=== PATIENT | female | born 1955 | race Caucasian/White ===

== ENCOUNTER → 2017-09-01 17:25 | Outpatient (CLI) | payer MEDICAID, SELFPAY ==
--- NOTE | 2017-09-01 17:30 | RAD_ITS ---
STUDY: X-RAY - ABDOMEN/PELVIS REASON FOR EXAM: Female, 62 years old. Diarrhea TECHNIQUE: AP supine and upright views of the abdomen and pelvis. COMPARISON: None. FINDINGS: Normal visualized lung bases. There is a moderate amount of colonic fecal material. There is no demonstrated free abdominal air. The visualized liver, spleen and kidneys are grossly normal in size and morphology. Normal soft tissue structures. There are diffuse degenerative changes of the visualized lumbar spine. RAD/Abd Inc Decub and/or Erect IMPRESSION: Moderate fecal retention throughout the colon Electronically Signed: Shamar Chavarria DO at 17:52 EST Tel , Service support ,
[2017-09-01 18:09] LABS: Absolute Lymphocyte Count 1.23 X10^3/ul (0.83-4.51); Basophil# 0.08 X10^3/uL; Basophil% 1.5 % (0-1); Eosinophil# 0.43 X10^3/uL; Eosinophils% 7.9 % (0-5); Hematocrit 37.9 % (37-47); Hemoglobin 11.9 g/dl (12.0-15.0); Lymphocyte # 1.23 X10^3/ul (4.0); Lymphocyte % 22.6 % (19-41); Mean Corp Hgb Conc 31.4 g/gl (32-36); Mean Corpuscular Hgb 28.6 pg (27.0-32.0); Mean Corpuscular Volume 91.1 fL (81-99); Monocyte% 12.8 % (0-10); Platelet Count 205 K/mm3 (150-450); RBC Distribution Width SD 46.1 fl (35.1-43.9); Red Blood Count 4.16 M/mm3 (4.2-5.4); White Blood Count 5.5 K/mm3 (4.4-11.0)
[2017-09-01 18:10] LABS: POSITIVE COUNT NO; POSITIVE DIFFERENTIAL NO; POSITIVE MORPHOLOGY NO
[2017-09-01 18:47] LABS: ALB/GLOB Ratio 0.9 RATIO (0.9-2.4); AST(SGOT) 34 U/L (15-37); Alanine Aminotransfer ALT/SGPT 42 U/L (13-56); Albumin, Serum 3.6 g/dL (3.2-5.0); Alkaline Phosphatase 84 U/L (45-117); Anion Gap 8 (5-15); BUN 13 mg/dL (7-18); BUN/Creat Ratio 12.6 RATIO (10-20); Calcium,Total 8.8 mg/dL (8.5-10.1); Chloride 98 mmol/L (98-107); Creatinine, Serum 1.03 mg/dL (0.55-1.02); EST Glomerular Filtration Rate 58 mL/min (>60); Est Glom Filt Rate - Afr Amer 70 mL/min (>60); Globulin 3.8 g/dL (2.2-4.2); Glucose 92 mg/dL (70-110); Potassium 4.1 mmol/L (3.5-5.1); Protein, Total 7.4 g/dL (6.4-8.2); Sodium Level 132 mmol/L (136-145)
== END ==
PROVIDERS: Family Provider Family Medicine Geriatric Medicine; PCP Family Medicine Geriatric Medicine; Visit Provider Family Medicine Geriatric Medicine
DX: N39.0 Urinary tract infection, site not specified (principal); K59.00 Constipation, unspecified; F05 Delirium due to known physiological condition
CPT/HCPCS: 74019; 80053; 85025; 87086

== ENCOUNTER → 2017-09-23 14:59 | Outpatient (CLI) | payer MEDICAID, SELFPAY ==
--- NOTE | 2017-09-24 09:35 | RAD_ITS ---
STUDY: X-RAY - ABDOMEN/PELVIS REASON FOR EXAM: Female, 62 years old. Diarrhea TECHNIQUE: AP supine and upright views of the abdomen and pelvis. COMPARISON: None. FINDINGS: Normal visualized lung bases. There is an unremarkable bowel gas pattern. There is no demonstrated free abdominal air. The visualized liver, spleen and kidneys are grossly normal in size and morphology. Normal soft tissue structures. Prominent degenerative changes of the left hip. RAD/Abd Inc Decub and/or Erect IMPRESSION: No definite acute abnormality. Electronically Signed: Bennett Hobson MD at 10:04 EST , Service support ,
== END ==
PROVIDERS: Family Provider Family Medicine Geriatric Medicine; PCP Family Medicine Geriatric Medicine; Visit Provider Family Medicine Geriatric Medicine
DX: R19.7 Diarrhea, unspecified (principal)

== ENCOUNTER → 2017-09-23 15:01 | Outpatient (CLI) | payer MEDICAID, SELFPAY | PROVIDERS: Family Provider Family Medicine Geriatric Medicine; PCP Family Medicine Geriatric Medicine; Visit Provider Family Medicine Geriatric Medicine | DX: N39.0 Urinary tract infection, site not specified (principal) | CPT/HCPCS: 87086; 87088 ==

== ENCOUNTER → 2018-01-08 05:45 | Outpatient (REF) | payer MEDICAID, SELFPAY ==
[2018-01-13 00:19] LABS: Hematocrit 39.2 % (37-47); Hemoglobin 12.4 g/dl (12.0-15.0); Mean Corp Hgb Conc 31.6 g/gl (32-36); Mean Corpuscular Hgb 29.6 pg (27.0-32.0); Mean Corpuscular Volume 93.6 fL (81-99); Platelet Count 318 K/mm3 (150-450); RBC Distribution Width CV 12.8 % (11.6-14.6); Red Blood Count 4.19 M/mm3 (4.2-5.4); White Blood Count 6.1 K/mm3 (4.4-11.0)
[2018-01-13 00:20] LABS: ALB/GLOB Ratio 0.9 RATIO (0.9-2.4); AST(SGOT) 15 U/L (15-37); Alanine Aminotransfer ALT/SGPT 28 U/L (13-56); Albumin, Serum 3.4 g/dL (3.2-5.0); Alkaline Phosphatase 66 U/L (45-117); BUN 10 mg/dL (7-18); BUN/Creat Ratio 13.2 RATIO (10-20); Creatinine, Serum 0.76 mg/dL (0.55-1.02); EST Glomerular Filtration Rate 83 mL/min (>60); Est Glom Filt Rate - Afr Amer 101 mL/min (>60); Globulin 3.6 g/dL (2.2-4.2); Glucose 75 mg/dL (74-106); Scan Indicated on CBC? Y/N NO; Sodium Level 140 mmol/L (136-145)
[2018-01-13 00:21] LABS: Anion Gap 7 (5-15); Chloride 104 mmol/L (98-107); Potassium 4.1 mmol/L (3.5-5.1)
== END ==
LOC: OLS.WCC 05:45
PROVIDERS: Visit Provider Family Medicine
DX: E87.1 Hypo-osmolality and hyponatremia (principal)
CPT/HCPCS: 36415; 80053; 82306; 85027

== ENCOUNTER → 2018-01-23 07:29 | Outpatient (REF) | payer MEDICAID, SELFPAY ==
[2018-01-23 08:18] LABS: Color, Urine Yellow (Yellow); Glucose, Dipstick Normal (Normal); Ketone-Dipstick Negative (Negative); Leukocyte Esterase-Dipstick 500 /ul (Negative); Nitrite-Dipstick Negative (Negative); Occult Blood-Urine 10 /ul (Negative); Protein-Dipstick Negative (Negative); Urine Bilirubin Dipstick Negative (Negative); Urine Clarity Sl. Cloudy (Clear); Urine Urobilinogen Normal (Normal); Urine pH 6.5 (5.0 - 8.0)
== END ==
LOC: OLS.WCC 07:29
PROVIDERS: Visit Provider Family Medicine
DX: N39.0 Urinary tract infection, site not specified (principal)
CPT/HCPCS: 81002; 87086; 87088; 87186

== ENCOUNTER → 2018-03-11 22:15 | Outpatient (REF) | payer MEDICAID, SELFPAY | LOC: OLS.WCC 22:15 | PROVIDERS: Visit Provider Family Medicine | DX: N39.0 Urinary tract infection, site not specified (principal) | CPT/HCPCS: 87077; 87086; 87088; 87186 ==

== ENCOUNTER → 2018-07-09 05:00 | Outpatient (REF) | payer MEDICAID, SELFPAY ==
[2018-07-09 08:59] LABS: Hematocrit 38.7 % (37-47); Hemoglobin 12.5 g/dl (12.0-15.0); Mean Corp Hgb Conc 32.3 g/gl (32-36); Mean Corpuscular Hgb 29.7 pg (27.0-32.0); Mean Corpuscular Volume 91.9 fL (81-99); Mean Platelet Vol. 10.5 fl (6.2-12.0); Platelet Count 292 K/mm3 (150-450); RBC Distribution Width CV 13.6 % (11.6-14.6); Red Blood Count 4.21 M/mm3 (4.2-5.4); White Blood Count 5.2 K/mm3 (4.4-11.0)
[2018-07-09 09:03] LABS: Scan Indicated on CBC? Y/N NO
[2018-07-09 09:09] LABS: AST(SGOT) 20 U/L (15-37); Alanine Aminotransfer ALT/SGPT 38 U/L (13-56); Albumin, Serum 3.5 g/dL (3.2-5.0); Alkaline Phosphatase 76 U/L (45-117); Anion Gap 8 (5-15); BUN 13 mg/dL (7-18); BUN/Creat Ratio 15.5 RATIO (10-20); Calcium,Total 9.4 mg/dL (8.5-10.1); Chloride 102 mmol/L (98-107); Creatinine, Serum 0.84 mg/dL (0.55-1.02); EST Glomerular Filtration Rate 73 mL/min (>60); Est Glom Filt Rate - Afr Amer 89 mL/min (>60); Globulin 3.6 g/dL (2.2-4.2); Glucose 86 mg/dL (74-106); Potassium 4.2 mmol/L (3.5-5.1); Protein, Total 7.1 g/dL (6.4-8.2); Sodium Level 138 mmol/L (136-145)
[2018-07-09 09:12] LABS: Vitamin D,25 Hydroxy 47.5 ng/mL (29.95-100.01)
== END ==
LOC: OLS.WCC 05:00
PROVIDERS: Visit Provider Family Medicine
DX: E55.9 Vitamin D deficiency, unspecified (principal); Z79.899 Other long term (current) drug therapy
CPT/HCPCS: 36415; 80053; 82306; 85027

== ENCOUNTER → 2018-08-07 14:30 | Outpatient (REF) | payer MEDICAID, SELFPAY ==
[2018-08-08 09:46] LABS: Color, Urine Yellow (Yellow); Glucose, Dipstick Normal (Normal); Ketone-Dipstick Negative (Negative); Leukocyte Esterase-Dipstick 500 /ul (Negative); Nitrite-Dipstick Negative (Negative); Occult Blood-Urine Negative /ul (Negative); Protein-Dipstick Negative (Negative); Urine Bilirubin Dipstick Negative (Negative); Urine Clarity Clear (Clear); Urine Urobilinogen Normal (Normal)
== END ==
LOC: OLS.WCC 14:30
PROVIDERS: Visit Provider Family Medicine
DX: N39.0 Urinary tract infection, site not specified (principal)
CPT/HCPCS: 81002; 87086; 87088

== ENCOUNTER → 2019-01-07 | Outpatient (REF) | payer MEDICAID, SELFPAY ==
[2019-01-07 07:56] LABS: Hematocrit 42.2 % (37-47); Hemoglobin 13.2 g/dl (12.0-15.0); Mean Corp Hgb Conc 31.3 g/gl (32-36); Mean Corpuscular Hgb 28.1 pg (27.0-32.0); Mean Platelet Vol. 11.4 fl (6.2-12.0); Platelet Count 261 K/mm3 (150-450); RBC Distribution Width CV 14.1 % (11.6-14.6); RBC Distribution Width SD 46.2 fl (35.1-43.9); Red Blood Count 4.69 M/mm3 (4.2-5.4); White Blood Count 5.4 K/mm3 (4.4-11.0)
[2019-01-07 08:01] LABS: Scan Indicated on CBC? Y/N NO
[2019-01-07 08:24] LABS: ALB/GLOB Ratio 0.8 RATIO (0.9-2.4); AST(SGOT) 41 U/L (15-37); Alanine Aminotransfer ALT/SGPT 77 U/L (13-56); Albumin, Serum 3.1 g/dL (3.2-5.0); Alkaline Phosphatase 80 U/L (45-117); Anion Gap 5 (5-15); BUN 18 mg/dL (7-18); BUN/Creat Ratio 23.3 RATIO (10-20); Calcium,Total 9.3 mg/dL (8.5-10.1); Chloride 107 mmol/L (98-107); Creatinine, Serum 0.77 mg/dL (0.55-1.02); EST Glomerular Filtration Rate 80 mL/min (>60); Est Glom Filt Rate - Afr Amer 97 mL/min (>60); Globulin 3.8 g/dL (2.2-4.2); Glucose 89 mg/dL (74-106); Potassium 3.8 mmol/L (3.5-5.1); Protein, Total 6.9 g/dL (6.4-8.2); Sodium Level 140 mmol/L (136-145)
[2019-01-07 09:02] LABS: Vitamin D,25 Hydroxy 49.1 ng/mL (29.95-100.01)
== END | disposition home or self-care (01) ==
LOC: OLS.WCC 05:00
PROVIDERS: Visit Provider Family Medicine
DX: Z79.899 Other long term (current) drug therapy (principal)
CPT/HCPCS: 36415; 80053; 82306; 85027

== ENCOUNTER → 2019-04-30 19:10 | Outpatient (REF) | payer MEDICAID, SELFPAY ==
[2019-05-01 09:35] LABS: Color, Urine Yellow (Yellow); Glucose, Dipstick 100 mg/dl (Normal); Ketone-Dipstick Negative (Negative); Leukocyte Esterase-Dipstick 500 /ul (Negative); Nitrite-Dipstick Positive (Negative); Occult Blood-Urine 10 /ul (Negative); Protein-Dipstick Negative (Negative); Specific Gravity, Urine 1.015 (1.002-1.030); Urine Bilirubin Dipstick Negative (Negative); Urine Clarity Clear (Clear); Urine Urobilinogen Normal (Normal)
== END ==
LOC: OLS.WCC 19:10
PROVIDERS: Visit Provider Family Medicine
DX: N39.0 Urinary tract infection, site not specified (principal)
CPT/HCPCS: 81002; 87077; 87086; 87088; 87186

== ENCOUNTER → 2019-07-09 05:00 | Outpatient (REF) | payer MEDICAID, SELFPAY ==
[2019-07-09 07:12] LABS: Hemoglobin 12.1 g/dL (12.0-15.0); Mean Corpuscular Hgb 29.6 pg (27.0-32.0); Mean Corpuscular Volume 95.4 fL (81-99); Mean Platelet Vol. 10.6 fl (6.2-12.0); Platelet Count 292 K/mm3 (150-450); RBC Distribution Width CV 13.1 % (11.6-14.6); RBC Distribution Width SD 46.1 fl (35.1-43.9); Red Blood Count 4.09 M/mm3 (4.2-5.4); White Blood Count 7.2 K/mm3 (4.4-11.0)
[2019-07-09 07:44] LABS: ALB/GLOB Ratio 0.8 RATIO (0.9-2.4); AST(SGOT) 31 U/L (15-37); Alanine Aminotransfer ALT/SGPT 60 U/L (13-56); Albumin, Serum 3.2 g/dL (3.2-5.0); Alkaline Phosphatase 81 U/L (45-117); Anion Gap 7 (5-15); BUN 22 mg/dL (7-18); BUN/Creat Ratio 29.5 RATIO (10-20); Calcium,Total 9.5 mg/dL (8.5-10.1); Chloride 105 mmol/L (98-107); Creatinine, Serum 0.75 mg/dL (0.55-1.02); EST Glomerular Filtration Rate 84 mL/min (>60); Est Glom Filt Rate - Afr Amer 101 mL/min (>60); Globulin 4.2 g/dL (2.2-4.2); Glucose 95 mg/dL (74-106); Protein, Total 7.4 g/dL (6.4-8.2); Sodium Level 142 mmol/L (136-145)
[2019-07-09 08:51] LABS: Vitamin D,25 Hydroxy 51.1 ng/mL (29.95-100.01)
== END ==
LOC: OLS.WCC 05:00
PROVIDERS: Visit Provider Family Medicine
DX: E55.9 Vitamin D deficiency, unspecified (principal); F32.9 Major depressive disorder, single episode, unspecified; F03.90 Unspecified dementia, unspecified severity, without behavioral disturbance, psychotic disturbance, mood disturbance, and anxiety; Z79.899 Other long term (current) drug therapy
CPT/HCPCS: 36415; 80053; 82306; 85027

== ENCOUNTER → 2019-07-23 05:00 | Outpatient (REF) | payer MEDICAID, SELFPAY ==
[2019-07-23 07:47] LABS: Color, Urine Yellow (Yellow); Glucose, Dipstick 100 mg/dl (Normal); Ketone-Dipstick Negative (Negative); Leukocyte Esterase-Dipstick 500 /ul (Negative); Nitrite-Dipstick Positive (Negative); Occult Blood-Urine Negative /ul (Negative); Protein-Dipstick 15 mg/dl (Negative); Specific Gravity, Urine 1.015 (1.002-1.030); Urine Bilirubin Dipstick Negative (Negative); Urine Clarity Sl. Cloudy (Clear); Urine Urobilinogen Normal (Normal)
== END ==
LOC: OLS.WCC 05:00
PROVIDERS: Family Provider Family Medicine Geriatric Medicine; PCP Family Medicine Geriatric Medicine; Visit Provider Family Medicine
DX: N39.0 Urinary tract infection, site not specified (principal); R30.0 Dysuria
CPT/HCPCS: 81002; 87077; 87086; 87088; 87186

== ENCOUNTER 2019-07-25 22:41 | Emergency (ER) | payer MEDICAID, SELFPAY ==
[2019-07-25 22:42] VITALS: BP 105/84; PULSE 125; RESP 18; TEMP 37.1; O2SAT 91; BMI 32.3
--- NOTE | 2019-07-25 22:54 | ED.RN ---
PER CALL FROM NURSE AT [facility], PT BECAME RESPONSIVE TO PAINFUL STIMULI ONLY AT APPROX 2000, LATER NOTED TO BE NON RESPONSIVE FOR APPROXIMATELY AN HOUR. STATE BASELINE IS A&0 X3, HX OF SCHIZOPHRENIA WITH DELUSIONS AND HALLUCINATIONS. ON BACTRIM PO FOR UTI, STARTED ON IV ZOSYN TODAY FOR UTI.
--- NOTE | 2019-07-25 23:16 | RAD_ITS ---
STUDY: X-RAY CHEST REASON FOR EXAM: Female, 64 years old. WHEEZING AND COUGH -- PATIENT UNABLE TO TAKE IN A DEEP BREATH TECHNIQUE: Single frontal view of the chest. COMPARISON: March 01, 2002 FINDINGS: Perihilar and left lower lobe airspace disease. There is no demonstrated pleural abnormality. Normal size heart. Normal mediastinum and ricky. Normal visualized pulmonary arteries. Normal visualized aortic arch and descending thoracic aorta. Normal visualized thoracic spine. Normal visualized ribs, clavicles, and shoulders. There is no demonstrated abnormality of the visualized soft tissue structures of the upper abdomen. RAD/Chest 1 View (Portable) IMPRESSION: Airspace disease as above Electronically Signed: Gold Valle MD at 23:36 EST , Service support ,
--- NOTE | 2019-07-25 23:16 | CT_ITS ---
HISTORY: LOW ABDOMEN PAIN, RECENT UTI TREATED WITH ANTIBIOTICS ADDITIONAL HISTORY: None provided. TECHNIQUE: CT images were obtained of the abdomen and pelvis without IV contrast. Enteric contrast was not given. Number of images including paperwork: 510. A radiation dose optimization technique was used for this scan. COMPARISON: 04/29/2017 FINDINGS: Evaluation of the abdominopelvic organs is limited in the absence of contrast. Artifact from the patient's arms also limits evaluation. LOWER THORAX: Small bilateral pleural effusions. Bibasilar linear opacities suggestive of subsegmental atelectasis versus scarring. Small area of atelectasis versus consolidation in left lower lobe. LIVER: No concerning focal lesion. GALLBLADDER: No radiopaque calculi. BILE DUCTS: No significant biliary dilatation. SPLEEN: Unremarkable. PANCREAS: Moderately atrophic. ADRENAL GLANDS: Unremarkable. KIDNEYS/URETERS: Unremarkable. BOWEL: No bowel obstruction. No significant bowel wall thickening. No localized inflammation. APPENDIX: Normal. FREE FLUID: No significant free fluid. FREE AIR: None. LYMPH NODES: No pathologic appearing adenopathy. PERITONEUM, RETROPERITONEUM AND MESENTERY: Otherwise unremarkable. VASCULATURE: Atherosclerotic calcification. ABDOMINAL WALL: Unremarkable. PELVIS: Distended bladder. No pelvic masses. OSSEOUS AND SOFT TISSUE STRUCTURES: No acute skeletal findings. Degenerative changes. CT/Abdomen/Pelvis without Cont IMPRESSION: No acute abdominal abnormality. Bladder distention. Small bilateral pleural effusions and bibasilar opacities. Individualized dose optimization techniques were used for this CT. at 0044 Reported and signed by: Giuliana Dexter MD Electronically Signed: Giuliana Dexter MD at 0:44 EST Tel , Service support ,
--- NOTE | 2019-07-25 23:16 | EKG12_ITS ---
Test Reason : UNRESPONSIVE Blood Pressure : / mmHG Vent. Rate : 121 BPM Atrial Rate : 121 BPM P-R Int : 140 ms QRS Dur : 066 ms QT Int : 318 ms P-R-T Axes : 045 023 054 degrees QTc Int : 451 ms Sinus tachycardia Otherwise normal ECG Confirmed by PINA HUERTA, KAY ([id number]), brands editor IVANIA MOODY ([id number]) on 07/29/2019 9:12:45 AM Referred By: BB Confirmed By:KAY HELLER MD
--- NOTE | 2019-07-25 23:18 | ED.VIS.GEN ---
History of Present Illness Chief Complaint: Unresponsive Informant: Patient, SNF Onset: Today - unk duration Timing: Continuous Quality: I don't feel good Location: all over Current Severity: Moderate Maximum Severity: Moderate Worsened by: unk Relieved by: unk Associated Symptoms: lower abd pain, nausea Narrative: Patient recently diagnosed with a urinary tract infection and was being treated with Bactrim. According to included paperwork that accompanies the patient from the long-term, the culture returned yesterday showing Proteus mirabilis, and it is resistant to Bactrim. She was switched to Zosyn. Apparently prior to arrival, the patient had a decreased level of consciousness. However, she is here awake and conversive. When our staff discussed with the long-term staff, they said she was unresponsive but alerting to painful stimulus for about an hour or so. There is no other helpful history available. Patient states she does not feel well but has difficult time providing any other useful information. On review of systems she admits to having a cough recently, she has lower abdominal pain and nausea right now, she does not know how long that is been there. History is limited due to the patient being disoriented and also having a history of schizophrenia with hallucinations apparently. She is not actively responding to hallucinations in the room but her speech is slurred which also limits the history from her. - Past Medical History (1) Anxiety and depression Status: Chronic (2) Dementia Status: Chronic (3) Schizophrenia Status: Chronic Past Medical History - Allergies and Home Meds Allergies/Adverse Reactions: Allergies ceftriaxone [From Rocephin] Allergy (Verified 08/03/17 21:29) Anaphylaxis Cephalosporins Allergy (Verified 07/25/19 23:14) Unknown procaine [From Novocain] Allergy (Verified 07/25/19 23:14) Unknown Primary Care Physician: Nura Ambriz Chi, MD [Primary Care Provider] - Surgical History: - - Dental surgery, extraction. Lives: [facility] Smoking Status: Never smoker - Family History Maternal Family History: Reports: Unknown Paternal Family History: Reports: Unknown Review of Systems ROS: Unable to Obtain - limited General: Reports: Malaise. Denies: Chills, Fever Eyes: Denies: Visual changes - bilaterally, Diplopia ENT: Denies: Bilateral ear pain, Sore throat Cardiovascular: Denies: Chest pain, Palpitations Respiratory: Reports: Cough. Denies: Dyspnea, Sputum Gastrointestinal: Reports: Abdominal pain, Nausea. Denies: Vomiting Musculoskeletal: Denies: Neck pain, Swelling, Extremity Pain Skin: Denies: Abscess, Wounds Neurological: Reports: Headache. Denies: Weakness, Numbness Physical Exam Vital Signs/Narrative: Vital Signs Temp Pulse Resp BP Pulse Ox 07/25/19 22:42 98.7 F 125 H 18 105/84 H 91 Inital Vital Signs reviewed: Yes General: Well nourished, Well developed, Obese, No Acute Distress Head: Normocephalic, Atraumatic Eyes: Perrl, EOMI ENT: Moist mucous membranes, No rhinorrhea Neck: Supple - FROM w/o meningismus, Nontender Cardiovascular: Regular rate, Regular rhythm, No murmurs Respiratory: No distress, Chest nontender, Wheezing - mild. Negative for: Rales, Rhonchi Abdomen: Soft, Nondistended, No masses, Tender - thorughout lower abd, mild; subjectively worst RLQ, Hypoactive bowel sounds. Negative for: Pulsatile mass Back: Nontender, Normal Inspection. Negative for: CVA tenderness Extremities: Nontender, No edema. Negative for: Calf Tenderness Skin: Normal color, No rash, No Trauma Neurological: Alert, Cranial nerves II-XII grossly intact, Normal Strength, Normal Sensation, Disoriented - to time Psychological: Normal affect, Normal Mood Diagnostic/Tx/Re-eval Impressions Abdomen/Pelvis CT 07/25/19 23:16 IMPRESSION: No acute abdominal abnormality. Bladder distention. Small bilateral pleural effusions and bibasilar opacities. Individualized dose optimization techniques were used for this CT. at 0044 Reported and signed by: Giuliana Dexter MD Electronically Signed: Giuliana Dexter MD at 0:44 EST Tel , Service support , Chest X-Ray 07/25/19 23:16 IMPRESSION: Airspace disease as above Electronically Signed: Gold Valle MD at 23:36 EST , Service support , Brain CT 07/25/19 23:22 IMPRESSION: No acute intracranial abnormality. Mild chronic involutional and white matter changes. Paranasal sinus disease. Individualized dose optimization techniques were used for this CT. at 0024 Reported and signed by: Giuliana Dexter MD Electronically Signed: Giuliana Dexter MD at 0:24 EST Tel , Service support , 07/25/19 23:16 CT Abd [Abdomen/Pelvis without Cont] [CT] Stat Chest 1 View (Portable) [RAD] Stat 07/25/19 23:22 CT Brain [Brain/Head without Contrast] [CT] Stat Laboratory Results 07/25/19 07/25/19 07/25/19 22:50 22:50 22:50 WBC 10.0 RBC 4.12 L Hgb 12.2 Hct 39.2 MCV 95.1 MCH 29.6 MCHC 31.1 L RDW Std Deviation 45.1 H RDW Coeff of Kelechi 12.9 Plt Count 272 MPV 10.0 Immature Gran % (Auto) 0.300 Neut % (Auto) 79.9 H Lymph % (Auto) 6.4 L Drew % (Auto) 8.4 Eos % (Auto) 4.3 Baso % (Auto) 0.7 Absolute Neuts (auto) 8.0 H Absolute Lymphs (auto) 0.64 L Nucleated RBC % 0 PT 13.9 INR 1.1 APTT 39.0 H Sodium 137 Potassium 4.1 Chloride 102 Carbon Dioxide 29.0 Anion Gap 6 BUN 23 H Creatinine 1.23 H Estim Creat Clear Calc 46.12 Est GFR (MDRD) Af Amer 57 L Est GFR (MDRD) Non-Af 47 L BUN/Creatinine Ratio 18.7 Glucose 158 H Lactic Acid Calcium 9.3 Total Bilirubin 0.60 AST 23 ALT 30 Alkaline Phosphatase 87 Troponin I < 0.015 Total Protein 7.7 Albumin 3.0 L Globulin 4.7 H Albumin/Globulin Ratio 0.6 L 07/25/19 22:50 WBC RBC Hgb Hct MCV MCH MCHC RDW Std Deviation RDW Coeff of Kelechi Plt Count MPV Immature Gran % (Auto) Neut % (Auto) Lymph % (Auto) Drew % (Auto) Eos % (Auto) Baso % (Auto) Absolute Neuts (auto) Absolute Lymphs (auto) Nucleated RBC % PT INR APTT Sodium Potassium Chloride Carbon Dioxide Anion Gap BUN Creatinine Estim Creat Clear Calc Est GFR (MDRD) Af Amer Est GFR (MDRD) Non-Af BUN/Creatinine Ratio Glucose Lactic Acid 1.2 Calcium Total Bilirubin AST ALT Alkaline Phosphatase Troponin I Total Protein Albumin Globulin Albumin/Globulin Ratio - Rhythm Strip Rhythm Strip: Sinus Tach Rate: 121 Ectopy: None - EKG Initial EKG Interpretation: No Acute Injury Pattern, Sinus Tachycardia Prior: Unchanged - Medical Decision Making Chest x-ray shows airspace disease in the distal left lower lobe. It is mild. There is a mild associated effusion. She has some slight wheezing but denies dyspnea. She is breathing well. I turned her oxygen off and she is no lower than 90-91% on room air. We left her on 1.5 L of oxygen by nasal cannula. She is not septic. She is breathing well at rest. She was just started on IV Zosyn at the nursing facility, and that is appropriate to cover both pneumonia and the urine infection. I will add azithromycin to help cover the airspace disease. I do not think admitting her to the hospital is going to change anything at this time. She has a resting tachycardia but her other vital signs are unremarkable. There was a case management social worker here, we discussed everything at length and she is comfortable with all of that as well. ED Disposition - Plan for ED Patient: Disposition: Home or Assisted Living Diagnosis: Pneumonia, Urinary tract infection Instructions: PNEUMONIA (Adult) Prescriptions: Azithromycin [Zithromax Z-Woo] 250 mg PO UD #1 box Prescription Printed Referrals: Nura Ambriz Chi, MD [Primary Care Provider] - 3-5 Days Additional Instructions: Patient has a small area of pneumonia in the left lower lobe in addition to the urinary tract infection. Zosyn should be continued and is appropriate. Will add azithromycin to help cover the pneumonia. She is not septic. She has a resting tachycardia but is otherwise stable. Her pulse ox did not go below 90% on room air, we are leaving here on 1.5 L nasal cannula, she is at 95-96% there and breathing well at rest despite mild wheezing.
--- NOTE | 2019-07-25 23:22 | CT_ITS ---
HISTORY: DECREASED LOC,PT WAS UNRESPONSIVE AT [facility] HX:DEMENTIA,SCHIZOPHRENIA ADDITIONAL HISTORY: None provided. COMPARISON: 07/24/2017 TECHNIQUE: Axial, coronal and sagittal CT images were obtained of the brain without intravenous contrast. Number of images including paperwork: 233. A radiation dose optimization technique was used for this scan. FINDINGS: BRAIN PARENCHYMA: No acute hemorrhage or mass. No definite acute infarct; MRI more sensitive. Mild white matter hypodensity is nonspecific but most commonly seen with chronic ischemic changes. Mild generalized atrophy. EXTRA-AXIAL SPACES: No acute hemorrhage. VENTRICULAR SYSTEM: No hydrocephalus. PARANASAL SINUSES AND MASTOIDS: Air-fluid level in the right sphenoid sinus with mild mucosal thickening.. Partial ethmoid opacification. ORBITS: Unremarkable imaged extent. SKELETON AND SOFT TISSUES: Calvarium intact. ASPECTS score: Not applicable. CT/Brain/Head without Contrast IMPRESSION: No acute intracranial abnormality. Mild chronic involutional and white matter changes. Paranasal sinus disease. Individualized dose optimization techniques were used for this CT. at 0024 Reported and signed by: Giuliana Dexter MD Electronically Signed: Giuliana Dexter MD at 0:24 EST Tel , Service support ,
[2019-07-25 23:38] VITALS: BP 144/115; PULSE 125; RESP 19; TEMP 36.7; O2SAT 95
[2019-07-25] MEDS: Ondansetron 4 MG/2 ML Vial IV (23:42)
[2019-07-25 23:43] LABS: Absolute Lymphocyte Count 0.64 X10^3/uL (0.83-4.51); Basophil# 0.07 X10^3/uL; Basophil% 0.7 % (0-1); Eosinophil# 0.43 X10^3/uL; Eosinophils% 4.3 % (0-5); Hematocrit 39.2 % (37-47); Hemoglobin 12.2 g/dL (12.0-15.0); Lymphocyte # 0.64 X10^3/ul (4.0); Lymphocyte % 6.4 % (19-41); Mean Corp Hgb Conc 31.1 g/dL (32-36); Mean Corpuscular Hgb 29.6 pg (27.0-32.0); Mean Corpuscular Volume 95.1 fL (81-99); Monocyte# 0.84 X10^3/uL; Monocyte% 8.4 % (0-10); NRBC Flagged by Analyzer 0 % (0-5); Neutrophil # 7.99 X10^3/uL (2.7-7.7); Neutrophil % 79.9 % (47-70); Platelet Count 272 K/mm3 (150-450); RBC Distribution Width CV 12.9 % (11.6-14.6); RBC Distribution Width SD 45.1 fl (35.1-43.9); Red Blood Count 4.12 M/mm3 (4.2-5.4)
[2019-07-25 23:47] LABS: International Normalized Ratio 1.1; Prothrombin Time (Protime)PT. 13.9 SECONDS (11.7-14.9)
[2019-07-25 23:58] LABS: ALB/GLOB Ratio 0.6 RATIO (0.9-2.4); AST(SGOT) 23 U/L (15-37); Alanine Aminotransfer ALT/SGPT 30 U/L (13-56); Alkaline Phosphatase 87 U/L (45-117); Anion Gap 6 (5-15); BUN 23 mg/dL (7-18); BUN/Creat Ratio 18.7 RATIO (10-20); Calcium,Total 9.3 mg/dL (8.5-10.1); Chloride 102 mmol/L (98-107); Creatinine, Serum 1.23 mg/dL (0.55-1.02); EST Glomerular Filtration Rate 47 mL/min (>60); Est Glom Filt Rate - Afr Amer 57 mL/min (>60); Estimated Creatinine Clearance 46.12 ml/min; Globulin 4.7 g/dL (2.2-4.2); Glucose 158 mg/dL (74-106); Potassium 4.1 mmol/L (3.5-5.1); Protein, Total 7.7 g/dL (6.4-8.2); Sodium Level 137 mmol/L (136-145)
[2019-07-25 23:59] LABS: Lactic Acid 1.2 mmol/L (0.4-1.9)
[2019-07-26 00:50] VITALS: BP 107/69; PULSE 118; RESP 15; O2SAT 96
[2019-07-26 01:29] VITALS: BP 100/90; PULSE 121; RESP 18; O2SAT 94
== END 2019-07-26 01:49 | disposition home or self-care (01) ==
PROVIDERS: Emergency Provider Emergency Medicine; Family Provider Family Medicine Geriatric Medicine; PCP Family Medicine Geriatric Medicine
DX: J18.9 Pneumonia, unspecified organism (principal); N39.0 Urinary tract infection, site not specified; B96.4 Proteus (mirabilis) (morganii) as the cause of diseases classified elsewhere; F03.90 Unspecified dementia, unspecified severity, without behavioral disturbance, psychotic disturbance, mood disturbance, and anxiety; F41.9 Anxiety disorder, unspecified; F32.9 Major depressive disorder, single episode, unspecified; F20.9 Schizophrenia, unspecified; Z79.2 Long term (current) use of antibiotics; Z79.899 Other long term (current) drug therapy; E66.9 Obesity, unspecified
CPT/HCPCS: 70450; 71045; 74176; 80053; 83605; 84484; 85025; 85610; 85730; 87040; 93005; 96361; 96374; 99285; A4216; J2405

== ENCOUNTER → 2019-09-17 05:00 | Outpatient (REF) | payer MEDICAID, SELFPAY ==
[2019-09-17 07:54] LABS: Hematocrit 41.1 % (37-47); Hemoglobin 12.3 g/dL (12.0-15.0); Mean Corp Hgb Conc 29.9 g/dL (32-36); Mean Corpuscular Volume 93.6 fL (81-99); Mean Platelet Vol. 10.8 fl (6.2-12.0); Platelet Count 287 K/mm3 (150-450); RBC Distribution Width CV 12.8 % (11.6-14.6); RBC Distribution Width SD 43.9 fl (35.1-43.9); Red Blood Count 4.39 M/mm3 (4.2-5.4); White Blood Count 7.5 K/mm3 (4.4-11.0)
[2019-09-17 08:09] LABS: Anion Gap 5 (5-15); BUN 14 mg/dL (7-18); BUN/Creat Ratio 17.6 RATIO (10-20); Calcium,Total 8.9 mg/dL (8.5-10.1); Chloride 100 mmol/L (98-107); EST Glomerular Filtration Rate 77 mL/min (>60); Est Glom Filt Rate - Afr Amer 94 mL/min (>60); Glucose 93 mg/dL (74-106); Potassium 3.3 mmol/L (3.5-5.1); Sodium Level 139 mmol/L (136-145)
[2019-09-17 08:28] LABS: Hemoglobin A1c 6.9 % (4.2-6.3)
[2019-09-17 08:37] LABS: BNP,B-Type NATRIURETIC PEPTIDE 10.8 pg/mL (0-100)
== END ==
LOC: OLS.WCC 05:00
PROVIDERS: PCP Family Medicine Geriatric Medicine; Visit Provider Family Medicine
DX: I73.9 Peripheral vascular disease, unspecified (principal); R60.9 Edema, unspecified
CPT/HCPCS: 36415; 80048; 83036; 83880; 85027

== ENCOUNTER → 2019-09-18 14:12 | Outpatient (REF) | payer MEDICAID, SELFPAY | LOC: OLS.WCC 14:12 | PROVIDERS: PCP Family Medicine Geriatric Medicine; Visit Provider Family Medicine | DX: R19.7 Diarrhea, unspecified (principal) | CPT/HCPCS: 87493 ==

== ENCOUNTER → 2019-12-01 05:00 | Outpatient (REF) | payer MEDICAID, SELFPAY ==
[2019-12-01 08:23] LABS: Hematocrit 43.7 % (37-47); Hemoglobin 13.1 g/dL (12.0-15.0); Mean Corpuscular Hgb 26.7 pg (27.0-32.0); Mean Platelet Vol. 11.3 fl (6.2-12.0); Platelet Count 273 K/mm3 (150-450); RBC Distribution Width CV 15.9 % (11.6-14.6); RBC Distribution Width SD 51.9 fl (35.1-43.9); Red Blood Count 4.91 M/mm3 (4.2-5.4); White Blood Count 6.4 K/mm3 (4.4-11.0)
[2019-12-01 08:37] LABS: ALB/GLOB Ratio 0.5 RATIO (0.9-2.4); AST(SGOT) 278 U/L (15-37); Alanine Aminotransfer ALT/SGPT 215 U/L (13-56); Albumin, Serum 3.1 g/dL (3.2-5.0); Alkaline Phosphatase 211 U/L (45-117); Anion Gap 8 (5-15); BUN 10 mg/dL (7-18); Calcium,Total 9.7 mg/dL (8.5-10.1); Chloride 100 mmol/L (98-107); Creatinine, Serum 0.84 mg/dL (0.55-1.02); EST Glomerular Filtration Rate 73 mL/min (>60); Est Glom Filt Rate - Afr Amer 89 mL/min (>60); Globulin 5.8 g/dL (2.2-4.2); Glucose 128 mg/dL (74-106); Potassium 3.6 mmol/L (3.5-5.1); Protein, Total 8.9 g/dL (6.4-8.2); Sodium Level 135 mmol/L (136-145)
== END ==
LOC: OLS.WCC 05:00
PROVIDERS: PCP Family Medicine Geriatric Medicine; Referring Provider Family Medicine; Visit Provider Family Medicine
DX: I50.9 Heart failure, unspecified (principal); E11.9 Type 2 diabetes mellitus without complications
CPT/HCPCS: 36415; 80053; 83880; 85027

== ENCOUNTER → 2019-12-29 06:00 | Outpatient (REF) | payer MEDICAID, SELFPAY ==
[2019-12-29 11:25] LABS: AST(SGOT) 486 U/L (15-37); Alanine Aminotransfer ALT/SGPT 438 U/L (13-56); Albumin, Serum 2.8 g/dL (3.2-5.0); Alkaline Phosphatase 209 U/L (45-117); Bilirubin, Direct 0.33 mg/dL (0.00-0.30); Globulin 5.6 g/dL (2.2-4.2); Protein, Total 8.4 g/dL (6.4-8.2)
--- OUTSIDE RECORDS SUMMARY | 2020-05-16 17:32 | XMS RPT_ITS | CCD ---
:1955 External Reference #:[id number] Author Organization [employer] Care Team Providers Name Role Phone Unavailable Unavailable Unavailable Allergies Reported Allergen Reaction(s) Severity Date of Onset Location diazePAM Translations: [ 04-23-2007 - [facility] Main DIAZEPAM] [place] procainamide Translations: 04-23-2007 - [facility] Main [ PROCAINAMIDE] [place] Repos itory Results Result Name Value Range Unit Interpretation Flag Date Location urine culture on 21-08-23 Urine culture, Sp. Request/Comment: - Specimen received in preserva tive Normal 08-27-2017 [facility] bacteria [place] ([id number]) Culture Result - 50,000 - <100,000 CFU/ml Normal urogenital [place] Comment: Performed By: #### URCUL ### #[facility] [address] [place], [place] [phone] progress on 2017-08 PROGRESS HNO ID: [id number]: Ela villafuerte 08-27-2017 [place] ([place]) BognerService: (none)Author Type: Clinic Physician AssistantType: Eleanor [place] NotesFiled: 08/27/2017 8:23 PMNote ([id number]) Text:08/27/2017Patient presents with:UTI: urinary frequency, stomach pain AND change in behavior X 2-3 daysSUBJECTIVE: This is a 62 year old that is here today for Complaint(s) ofurinary frequency and increased confusion/strange behavior x 2-3 days.Intermittent diarrhea, more of a chronic issue. No blood in the stools.Denies fever/chills, vomiting, SOB, wheezing.PAST MEDICAL HISTORYDiagnosis Date- Chronic rhinitis- Dental caries- Other malaise and fatigue- Reflux esophagitis- Renal glycosuria (HCC)- Unspecified schizophrenia, unspecified conditionALLERGIES Novocaine [Procainamide]; Rocephin [Ceftriaxone]; Valium[Diazepam]MEDICATIONSCurrent Outpatient Prescriptions:GABAPENTIN ORAL Take 100 mg by mouth as directed.tamsulosin ER (FLOMAX) 0.4 mg cp24 Take 0.4 mg by mouth daily at bedtime.bethanechol (URECHOLINE) 25 mg tablet Take 25 mg by mouth three timesdaily.meloxicam (MOBIC) 15 mg tablet Take 15 mg by mouth once daily.SENNOSIDES/DOCUSATE SODIUM (DOC-Q-LAX ORAL) Take by mouth.Multivitamin capsule Take 1 capsule by mouth once daily.OMEPRAZOLE (PRILOSEC ORAL) Take by mouth.linaclotide (LINZESS) 145 mcg cap Take by mouth.POLYETHYLENE GLYCOL 3350 (MIRALAX ORAL) Take by mouth.Cholecalciferol, Vitamin D3, 2,000 unit ORAL Cap Take by mouth oncedaily. Vitamin D3, Pt takes one capsule daily.clonazepam (KLONOPIN) 1 mg ORAL Tab Take 1 tablet twice dailyRisperidone (RISPERDAL) 4 mg ORAL Tab Take one(1) tablet daily.benztropine 2 mg ORAL Tab Cogentin. Take one(1) tablet 0.5mg two(2)times daily.desonide 0.05 % lotion Apply 1 application to affected area twice daily.METHYLCELLULOSE (CITRUCEL ORAL) Take by mouth.hydrOXYzine HCl 100 mg Tab Take by mouth.white petrolatum-mineral oil (EUCERIN) cream Apply 1 application toaffected area twice daily.No current facility-administered medications for this visit.SOCIAL HISTORYSocial History Marital status: Single Spouse name: Years of education: 10 Number of children: 2Occupational HistoryOccupation Employer CommentunemployedSocial History Main Topics Smoking status: Former Smoker Packs/day: 0.00 Years: 0.00 Smokeless status: Never Used Comment: smokes a couple cigarettes in the evening Sexual activity: Yes Partners with: Male control/protection: NoneREVIEW OF SYSTEMSAll other reviewed and negative other than HPI.OBJECTIVE:BP 102/78 Pulse 88 Temp 36.3 ?C (97.3 ?F) (Tympanic) Resp 18 Wt73.5 kg (162 lb) BMI 30.11 kg/u1XVAJSRIPPD Well appearing, alert, in no acute distress, well-hydrated,well nourished.ABDOMEN soft, non-tender, non-distended, without organomegaly or palpablemasses, no tenderness to palpationBACK: Normal exam, no CVA TTPASSESSMENT/PLAN:1. Frequent urination - ICD9: 788.41, ICD10: R35.0 (primary diagnosis)acute- UA positive for imer esterase, hematuria and proteinuria- Send urine for culture- Begin treatment with Bactrim DS BID for 5 days- Patient education for prevention given- UA DIP B/O- URINE CULTURE- SULFAMETHOXAZOLE 800 MG-TRIMETHOPRIM 160 MG TABLET2. Diarrhea, unspecified type - ICD9: 787.91, ICD10: R19.7Bland/BRAT dietAdvised contacting PCP to discuss constipation tx and adjusting currentdaily laxativesReviewed red flags and when to seek care sooner.The patient indicates understanding of these issues and agrees with theplan.FAHAD Floresov on 2017-08-27 CNOV Office Visit Normal 08-27-2017 [place] and (UCWSTR) --------JINA MARK ([id number]) 1955 FDat e Time Provider Department08/27/17 7:00 PM ELA KIM) [facility] Eduardo [facility] During your visit today, we recorded the following information about you: Temperature Pulse Respiration (84980) Blood pressure 97.3 degrees 88/minute 18/minute 102/78 Weight 73.5 kgEla Kim PA-C 08/27/2017 8:23 PM Signed08/27/2017Patie nt presents with:UTI: urinary frequency, stomach pain ANDamp; change in behavior X 2-3 daysSUBJECTIV E: This is a 62 year old that is here today for Complaint(s) ofurinary frequency and increased conf usion/strange behavior x 2-3 days.Intermittent diarrhea, more of a chronic issue. No blood in the stool s.Denies fever/chills, vomiting, SOB, wheezing.PAST MEDICAL HISTORYDiagnosis Date- Chron ic rhinitis- Dental caries- Other malaise and fatigue- Reflux esophagitis- Renal glycosuria (HCC)- Unsp ecified schizophrenia, unspecified conditionALLERGIES Novocaine [Procainamide]; Rocephin [Ce ftriaxone]; Valium [Diazepam]MEDICATIONSCurrent Outpatient Prescriptions:GABAPENTIN ORA L Take 100 mg by mouth as directed.tamsulosin ER (FLOMAX) 0.4 mg cp24 Take 0.4 mg by mouth daily at bed time.bethanechol (URECHOLINE) 25 mg tablet Take 25 mg by mouth three times daily.meloxicam (MOBIC) 15 m g tablet Take 15 mg by mouth once daily.SENNOSIDES/DOCUSATE SODIUM (DOC-Q-LAX ORAL) Take by indira .Multivitamin capsule Take 1 capsule by mouth once daily.OMEPRAZOLE (PRILOSEC ORAL) Take by mout h.linaclotide (LINZESS) 145 mcg cap Take by mouth.POLYETHYLENE GLYCOL 3350 (MIRALAX ORAL) Take by mouth .Cholecalciferol, Vitamin D3, 2,000 unit ORAL Cap Take by mouth once daily.Vitamin D3, Pt takes o ne capsule daily.clonazepam (KLONOPIN) 1 mg ORAL Tab Take 1 tablet twice dailyRisperidone (RISPERDAL) 4 mg ORAL Tab Take one(1) tablet daily.benztropine 2 mg ORAL Tab Cogentin. Take one(1) tablet 0.5mg two (2) timesdaily.desonide 0.05 % lotion Apply 1 application to affected area twice daily.METHYLCELLULOSE (CITRUCEL ORAL) Take by mouth.hydrOXYzine HCl 100 mg Tab Take by mouth.white petrolatum-metal miner blasting al oil (EUCERIN) cream Apply 1 application to affectedarea twice daily.No current facility-administere d medications for this visit.SOCIAL HISTORYSocial History Marital status: Single Spouse name: Years of education: 10 Number of children: 2Occupational HistoryOccupation Employer CommentunemployedSocial Hist ory Main Topics Smoking status: Former Smoker Packs/day: 0.00 Years: 0.00 Smokeless status: Never Used Comment: smokes a couple cigarettes in the evening Sexual activity: Yes Partners with: Male co ntrol/protection: NoneREVIEW OF SYSTEMSAll other reviewed and negative other than HPI.OBJECTIVE:BP 102/78 Pulse 88 Temp 36.3 ?C (97.3 ?F) (Tympanic) Resp 18 Wt 73.5 kg(162 lb) BMI 30.11 kg/m2 APPEARANCE Well appearing, alert, in no acute distress, well-hydrated, wellnourished.ABDOMEN soft, non-tender, non-distended, without organomegaly or palpablemasses, no tenderness to palpationBACK: Normal exam, no CVA TTPASSESSMENT/PLAN:1. Frequent urination - ICD9: 788.41, ICD10: R35.0 (primar y diagnosis)acute- UA positive for imer esterase, hematuria and proteinuria- Send urine for culture- Begi n treatment with Bactrim DS BID for 5 days- Patient education for prevention given- UA DIP B/O - URINE CULTURE- SULFAMETHOXAZOLE 800 MG- TRIMETHOPRIM 160 MG TABLET2. Diarrhea, unspecified type - ICD9: 787.91, ICD10: R19.7Bland/BRAT dietAdvised contacting PCP to discuss constipation tx and adjustin g current dailylaxativesReviewed red flags and when to seek care sooner.The patient indicates understand ing of these issues and agrees with the plan.ARIAN Flores-Britton Kim PA-C 08/27/2017 8:03 PM AddendumRecommend ER if worsening abdominal pain, vomiting, blood in the stool s, feverANDgt;100.Recommend bland/BRAT diet for diarrhea, with plenty of fluids. I also wasadvise con tacting PCP's office tomorrow to discuss holding some of theconstipation medications/laxitivies for t he duration of the diarrhea.Referring Provider: SELF [200]Allergies As of Date: 08/27/2017 Noted Aller gy ReactionNOVOCAINE (PROCAINAMIDE) 04/23/2007ROCEPHIN (CEFTRIAXONE) 08/27/2017 16 - UnknownVALIU M (DIAZEPAM) 04/23/2007Date Reviewed: 08/27/2017Reviewed by: Salvatore Jasmine LPN - Fully AssessedReason f or Visit: UTI [116] Cmt: urinary frequency, stomach pain AND change in behavior X 2-3 daysPrimary V isit Diagnosis:Frequent urination [R35.0] Other Visit Diagnosis:Diarrhea, unspecified type [R19.7]Orde r(s):UA DIP B/O [6373496] Order #: [id number] URINE CULTURE [SQURCUL] Order #: [id number] sulfamethoxazo le-trimethoprim (BACTRIM DS) 800-160 mg per tabletTake 1 tablet by mouth twice daily for 5 days.Disp: 10 tabletRfl: 0Prescriptions as of 08/27/2017 Sig: GABAPENTIN ORAL Take 100 mg by mouth as direc* TA MSULOSIN 0.4 MG CAPSULE Take 0.4 mg by mouth daily at* BETHANECHOL CHLORIDE 25 MG TA* Take 25 mg by mout h three kurt* MELOXICAM 15 MG TABLET Take 15 mg by mouth once piper* DOC-Q-LAX ORAL Take by mouth . MULTIVITAMIN CAPSULE Take 1 capsule by mouth once * PRILOSEC ORAL Take by mouth. LINACLOTIDE 145 MCG C APSULE Take by mouth. MIRALAX ORAL Take by mouth. * CHOLECALCIFEROL (VITAMIN D3) * Take by mouth once daily. Vi* * KLONOPIN 1 MG TABLET Take 1 tablet twice daily * RISPERDAL 4 MG TABLET Take o ne(1) tablet daily. * BENZTROPINE 2 MG TABLET Cogentin. Take one(1) tablet* SULFAMETHOXAZOLE 800 MG-TRIM E* Take 1 tablet by mouth twice * DESONIDE 0.05 % LOTION Apply 1 application to affect* CITRU MARIA LUISA ORAL Take by mouth. HYDROXYZINE HCL 100 MG TABLET Take by mouth. WHITE PETROLATUM-MINERAL OIL * Chrissy ly 1 application to affect*Medication notes this encounter DESONIDE 0.05 % LOTION >> Salvatore Jasmine LPN 7:01 PM >> SALVATORE JASMINE LPN FriAug 27, 2017 7:01 PM No longer using CITRUCEL ORAL >> Salvatore Jasmine LPN 08/27/2017 6:56 PM >> SALVATORE JASMINE LPN FriAug 27, 2017 6:56 PM Finished med HYDROXYZINE HCL 100 MG TABLET >> Salvatore Jasmine LPN 08/27/2017 7:01 PM >> SALVATORE JASMINE FOLDER SEAMER AUTOMATIC FriAug 27, 2017 7:01 PM Not taking WHITE PETROLATUM-MINERAL OIL TOPICAL CREAM >> Salvatore Jasmine FOLDER SEAMER AUTOMATIC 08/27/2017 7:01 PM >> RAHAT JASMINEI FOLDER SEAMER AUTOMATIC FriAug 27, 2017 7:01 PM No longer usingProblem List As Of Date 08/27/2017 Noted Resolved SC HIZOPHRENIA NOS-UNSPEC [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 Recommend bland/BRAT diet fo r diarrhea, with plenty of fluids. I also was advise contacting PCP's office tomorrow to discuss h olding some of the constipation medications/laxitivies for the duration of the diarrhea.Prescriptions o rdered this encounter Disp Refills Start End SULFAMETHOXAZOLE 800 MG-TRIMETHOPRIM* 10 t* 0 09/01/2017 Route: ORAL Sig: Take 1 tablet by mouth twice daily for 5 days.Encounter Number: [id number] Status:Closed by ELA KIM PA-C on 08/27/17 Encounters Date Type Reason Provider Location 08-27-2017 - 08-[id number] Summary Purpose Family History No Family History Records Found Advance Directives No Advanced Directives Records Found Additional Source Comments FOR RECORDS PERTAINING TO PATIENTS WHO ARE OR HAVE BEEN ENROLLED IN A CHEMICAL DEPENDENCY/SUBSTANCE ABUSE PROGRAM, SOME INFORMATION MAY BE OMITTED. This clinical summary was aggregated from multiple sources. Caution should be exercised in using it in the provision of clinical care. This summary normalizes information from multiple sources, and as a consequence, information in this document may materially changethe coding, format and clinical context of patient data. In addition, data may be omittedin some cases. CLINICAL DECISIONS SHOULD BE BASED ON THE PRIMARY CLINICAL RECORDS. [facility] provides no warranty or guarantee of the accuracy or completeness of information in this document. UNRECOGNIZED CONTENT PROVIDED BELOW FOR UNRECOGNIZED SECTION INFORMATION SOURCE DATE CREATED AUTHOR AUTHOR'S ORGANIZATIO N 01/26/2018 [facility] Eduardo mckeon
== END ==
LOC: OLS.WCC 06:00
PROVIDERS: PCP Family Medicine Geriatric Medicine; Visit Provider Family Medicine
DX: R94.5 Abnormal results of liver function studies (principal)
CPT/HCPCS: 36415; 80076

== ENCOUNTER → 2019-12-30 06:00 | Outpatient (REF) | payer MEDICAID, SELFPAY ==
[2019-12-30 09:03] LABS: Prothrombin Time (Protime)PT. 12.5 SECONDS (11.7-14.9)
[2019-12-30 09:16] LABS: Ferritin 77 ng/mL (8-252)
[2019-12-30 10:12] LABS: Hepatitis B Surface Antibody Non-Reactive; Hepatitis C Antibody Non-Reactive (Nonreactive)
[2019-12-31 13:56] LABS: ANTINUCLEAR ANTIBODIES DIRECT Negative (Negative)
[2019-12-31 16:08] LABS: Endomysial Antibody IgA Negative (Negative); Immunoglobulin A 251 mg/dL (87-352)
[2019-12-31 19:08] LABS: Hepatitis A IgM Antibody Negative (Negative); t-Transglutaminase IgA <2 U/mL (0-3)
--- OUTSIDE RECORDS SUMMARY | 2020-05-16 18:18 | XMS RPT_ITS | CCD ---
:1955 External Reference #:[id number] Author Organization [employer] Care Team Providers Name Role Phone Unavailable Unavailable Unavailable Allergies Reported Allergen Reaction(s) Severity Date of Onset Location diazePAM Translations: [ 04-23-2007 - [facility] Main DIAZEPAM] [place] Reposito ry procainamide Translations: 04-23-2007 - [facility] Main [ PROCAINAMIDE] [place] Repos itory Results Result Name Value Range Unit Interpretation Flag Date Location urine culture on 21-08-23 Urine culture, Sp. Request/Comment: - Specimen received in preserva tive Normal 08-27-2017 [facility] bacteria [place] ([id number]) Culture Result - 50,000 - <100,000 CFU/ml Normal urogenital [place] Comment: Performed By: #### URCUL ### #[facility] [address] [place], [place] [phone] progress on 2017-08 PROGRESS HNO ID: [id number]: Ela villafuerte 08-27-2017 [place] ([place]) BognerService: (none)Author Type: Clinic Physician AssistantType: Eleanor [place] NotesFiled: 08/27/2017 8:23 PMNote ([id number]) Text:08/27/2017Patient presents with:UTI: urinary frequency, stomach pain [...] 18 Wt73.5 kg (162 lb) BMI 30.11 kg/v6MFDZGOZNGZ Well appearing, alert, in no acute distress, [...] Normal 08-27-2017 Olivia and (UCWSTR) --------JINA MARK ([id number]) 1955 FDat e Time Provider Department08/27/17 7:00 PM ELA KIM) [facility] Eduardo [facility] During your visit today, we recorded the following information about you: Temperature Pulse Respiration (27056) Blood pressure 97.3 degrees 88/minute 18/minute 102/78 [...] HCl 100 mg Tab Take by mouth.white petrolatum-loan examiner al oil (EUCERIN) cream Apply 1 application [...] Diagnosis:Diarrhea, unspecified type [R19.7]Orde r(s):UA DIP B/O [7290673] Order #: [id number] URINE CULTURE [SQURCUL] Order #: [id number] sulfamethoxazo le-trimethoprim (BACTRIM DS) 800-160 mg per [...] LPN 08/27/2017 7:01 PM >> SALVATORE JASMINE APPLICATION SUPPORT MANAGER FriAug 27, 2017 7:01 PM Not taking WHITE PETROLATUM-MINERAL OIL TOPICAL CREAM >> Salvatore Jasmine APPLICATION SUPPORT MANAGER 08/27/2017 7:01 PM >> RAHAT JASMINEI APPLICATION SUPPORT MANAGER FriAug 27, 2017 7:01 PM No longer [...] twice daily for 5 days.Encounter Number: [id number] Status:Closed by ELA KIM PA-C on 08/27/17 Encounters Date Type Reason Provider Location 08-27-2017 - 08-27-[id number] Summary Purpose Family History No Family History [...] BE BASED ON THE PRIMARY CLINICAL RECORDS. [facility] provides no warranty or guarantee of the accuracy or completeness of information in this document. UNRECOGNIZED CONTENT PROVIDED BELOW FOR UNRECOGNIZED SECTION INFORMATION SOURCE DATE CREATED AUTHOR AUTHOR'S ORGANIZATIO N 01/26/2018 [facility] Eduardo mckeon
== END ==
LOC: OLS.WCC 06:00
PROVIDERS: PCP Family Medicine Geriatric Medicine; Visit Provider Family Medicine
DX: R74.8 Abnormal levels of other serum enzymes (principal)
CPT/HCPCS: 36415; 82728; 82784; 83516; 85610; 86038; 86255; 86706; 86709; 86803

== ENCOUNTER → 2020-01-10 05:00 | Outpatient (REF) | payer MEDICAID, SELFPAY ==
[2020-01-10 08:49] LABS: Hemoglobin 11.8 g/dL (12.0-15.0); Mean Corp Hgb Conc 31.1 g/dL (32-36); Mean Corpuscular Hgb 27.9 pg (27.0-32.0); Mean Corpuscular Volume 89.8 fL (81-99); Mean Platelet Vol. 11.7 fl (6.2-12.0); Platelet Count 260 K/mm3 (150-450); RBC Distribution Width CV 17.7 % (11.6-14.6); RBC Distribution Width SD 57.5 fl (35.1-43.9); Red Blood Count 4.23 M/mm3 (4.2-5.4); White Blood Count 7.1 K/mm3 (4.4-11.0)
[2020-01-10 09:05] LABS: ALB/GLOB Ratio 0.4 RATIO (0.9-2.4); AST(SGOT) 880 U/L (15-37); Alanine Aminotransfer ALT/SGPT 726 U/L (13-56); Albumin, Serum 2.5 g/dL (3.2-5.0); Alkaline Phosphatase 274 U/L (45-117); Anion Gap 6 (5-15); BUN 12 mg/dL (7-18); BUN/Creat Ratio 16.5 RATIO (10-20); Bilirubin, Direct 1.88 mg/dL (0.00-0.30); Calcium,Total 9.2 mg/dL (8.5-10.1); Chloride 104 mmol/L (98-107); Creatinine, Serum 0.73 mg/dL (0.55-1.02); EST Glomerular Filtration Rate 86 mL/min (>60); Est Glom Filt Rate - Afr Amer 104 mL/min (>60); Globulin 5.7 g/dL (2.2-4.2); Glucose 130 mg/dL (74-106); Potassium 3.9 mmol/L (3.5-5.1); Protein, Total 8.2 g/dL (6.4-8.2); Sodium Level 137 mmol/L (136-145)
[2020-01-10 09:08] LABS: Vitamin D,25 Hydroxy 48.7 ng/mL
[2020-01-10 09:46] LABS: Hemoglobin A1c 5.9 % (3.8-5.6)
--- OUTSIDE RECORDS SUMMARY | 2020-05-21 09:23 | XMS RPT_ITS | CCD ---
:1955 External Reference #:[id number] Author Organization [employer] Care Team Providers Name Role Phone Unavailable Unavailable Unavailable Allergies Reported Allergen Reaction(s) Severity Date of Onset Location diazePAM Translations: [ 04-23-2007 - [facility] Main DIAZEPAM] [place] Reposito ry procainamide Translations: 04-23-2007 - [facility] Main [ PROCAINAMIDE] [place] Repos itory Results Result Name Value Range Unit Interpretation Flag Date Location urine culture on 21-08-23 Urine culture, Sp. Request/Comment: - Specimen received in preserva tive Normal 08-27-2017 [facility] bacteria [place] ([id number]) Culture Result - 50,000 - <100,000 CFU/ml Normal urogenital [place] Comment: Performed By: #### URCUL ### #[facility] [address] [place], [place] [phone] progress on 2017-08 PROGRESS HNO ID: [id number]: Ela villafuerte 08-27-2017 [place] ([place]) BognerService: (none)Author Type: Clinic Physician AssistantType: Eleanor [place] NotesFiled: 08/27/2017 8:23 PMNote ([id number]) Text:08/27/2017Patient presents with:UTI: urinary frequency, stomach pain [...] 18 Wt73.5 kg (162 lb) BMI 30.11 kg/w2PSYWLDHGFC Well appearing, alert, in no acute distress, [...] Normal 08-27-2017 [place] and (UCWSTR) --------JINA MARK ([id number]) 1955 FDat e Time Provider Department08/27/17 7:00 PM ELA KIM) [facility] Eduardo [facility] During your visit today, we recorded the following information about you: Temperature Pulse Respiration (97485) Blood pressure 97.3 degrees 88/minute 18/minute 102/78 [...] HCl 100 mg Tab Take by mouth.white petrolatum-tunnel miner al oil (EUCERIN) cream Apply 1 application [...] Diagnosis:Diarrhea, unspecified type [R19.7]Orde r(s):UA DIP B/O [7920180] Order #: [id number] URINE CULTURE [SQURCUL] Order #: [id number] sulfamethoxazo le-trimethoprim (BACTRIM DS) 800-160 mg per [...] TABLET Take 15 mg by mouth once ppier* DOC-Q-LAX ORAL Take by mouth . MULTIVITAMIN [...] med HYDROXYZINE HCL 100 MG TABLET >> Salvtaore Jasmine LPN 08/27/2017 7:01 PM >> SALVATORE JASMINE DRAWING TENDER FriAug 27, 2017 7:01 PM Not taking WHITE PETROLATUM-MINERAL OIL TOPICAL CREAM >> Salvatore Jasmine DRAWING TENDER 08/27/2017 7:01 PM >> RAHAT JASMINEI DRAWING TENDER FriAug 27, 2017 7:01 PM No longer [...] twice daily for 5 days.Encounter Number: [id number] Status:Closed by ELA KIM PA-C on 08/27/17 Encounters Date Type Reason Provider Location 08-27-2017 - 08-27-2017 [id number] Summary Purpose Family History No Family History [...] BE BASED ON THE PRIMARY CLINICAL RECORDS. [facility] provides no warranty or guarantee of the accuracy or completeness of information in this document. UNRECOGNIZED CONTENT PROVIDED BELOW FOR UNRECOGNIZED SECTION INFORMATION SOURCE DATE CREATED AUTHOR AUTHOR'S ORGANIZATIO N 01/26/2018 [facility] Eduardo mckeon
== END ==
LOC: OLS.WCC 05:00
PROVIDERS: PCP Family Medicine Geriatric Medicine; Visit Provider Family Medicine
DX: I50.9 Heart failure, unspecified (principal); E11.9 Type 2 diabetes mellitus without complications; Z79.899 Other long term (current) drug therapy
CPT/HCPCS: 36415; 80053; 82248; 82306; 83036; 85027

== ENCOUNTER → 2020-01-17 06:00 | Outpatient (REF) | payer MEDICAID, SELFPAY ==
[2020-01-17 09:40] LABS: Color, Urine Yellow (Yellow); Glucose, Dipstick 100 mg/dl (Normal); Ketone-Dipstick Negative (Negative); Leukocyte Esterase-Dipstick 25 /ul (Negative); Nitrite-Dipstick Positive (Negative); Occult Blood-Urine Negative /ul (Negative); Protein-Dipstick Negative (Negative); Urine Clarity Sl. Cloudy (Clear); Urine Urobilinogen 1 mg/dl (Normal)
[2020-01-17 09:42] LABS: Urine Bilirubin Dipstick 1 mg/dL (Negative)
--- OUTSIDE RECORDS SUMMARY | 2020-05-21 13:24 | XMS RPT_ITS | CCD ---
:1955 External Reference #:[id number] Author Organization [employer] Care Team Providers Name Role Phone Unavailable Unavailable Unavailable Allergies Reported Allergen Reaction(s) Severity Date of Onset Location diazePAM Translations: [ 04-23-2007 - [facility] [place] [facility] Main DIAZEPAM] [place] Reposito ry procainamide Translations: 04-23-2007 - [facility] Main [ PROCAINAMIDE] [place] Repos itory Results Result Name Value Range Unit Interpretation Flag Date Location urine culture on 21-08-23 Urine culture, Sp. Request/Comment: - Specimen received in preserva tive Normal 08-27-2017 [facility] bacteria [place] ([id number]) Culture Result - 50,000 - <100,000 CFU/ml Normal urogenital [place] Comment: Performed By: #### URCUL ### #[facility] [address] [place], [place] [phone] progress on 2017-08 PROGRESS HNO ID: [id number]: Ela villafuerte 08-27-2017 [place] ([place]) BognerService: (none)Author Type: Clinic Physician AssistantType: Eleanor [place] NotesFiled: 08/27/2017 8:23 PMNote ([id number]) Text:08/27/2017Patient presents with:UTI: urinary frequency, stomach pain [...] 18 Wt73.5 kg (162 lb) BMI 30.11 kg/g6HUYNCHXAIF Well appearing, alert, in no acute distress, [...] Normal 08-27-2017 [place] and (UCWSTR) --------JINA MARK ([id number]) 1955 FDat e Time Provider Department08/27/17 7:00 PM ELA KIM) [facility] Eduardo [facility] During your visit today, we recorded the following information about you: Temperature Pulse Respiration (28741) Blood pressure 97.3 degrees 88/minute 18/minute 102/78 [...] HCl 100 mg Tab Take by mouth.white petrolatum-employment appeals examiner al oil (EUCERIN) cream Apply 1 [...] Diagnosis:Diarrhea, unspecified type [R19.7]Orde r(s):UA DIP B/O [9504501] Order #: [id number] URINE CULTURE [SQURCUL] Order #: [id number] sulfamethoxazo le-trimethoprim (BACTRIM DS) 800-160 mg per [...] LPN 08/27/2017 7:01 PM >> SALVATORE JASMINE AUTOMATION APPLICATION ENGINEER FriAug 27, 2017 7:01 PM Not taking WHITE PETROLATUM-MINERAL OIL TOPICAL CREAM >> Salvatore Jasmine AUTOMATION APPLICATION ENGINEER 08/27/2017 7:01 PM >> RAHAT JASMINEI AUTOMATION APPLICATION ENGINEER FriAug 27, 2017 7:01 PM No longer [...] twice daily for 5 days.Encounter Number: [id number] Status:Closed by ELA KIM PA-C on 08/27/17 Encounters Date Type Reason Provider Location 08-27-2017 - 08-27-2017 [id number] Summary Purpose Family History No Family History [...] BE BASED ON THE PRIMARY CLINICAL RECORDS. [facility] provides no warranty or guarantee of the accuracy or completeness of information in this document. UNRECOGNIZED CONTENT PROVIDED BELOW FOR UNRECOGNIZED SECTION INFORMATION SOURCE DATE CREATED AUTHOR AUTHOR'S ORGANIZATIO N 01/26/2018 [facility] Eduardo mckeon
== END ==
LOC: OLS.WCC 06:00
PROVIDERS: PCP Family Medicine Geriatric Medicine; Visit Provider Family Medicine
DX: R30.0 Dysuria (principal); R33.9 Retention of urine, unspecified
CPT/HCPCS: 81002; 87077; 87086; 87088; 87186

== ENCOUNTER → 2020-01-21 07:34 | Outpatient (CLI) | payer MEDICAID, SELFPAY ==
--- NOTE | 2020-01-21 07:40 | CT_ITS ---
STUDY: CT ABDOMEN AND PELVIS WITHOUT CONTRAST REASON FOR EXAM: Female, 64 years old. ASCITIES RADIATION DOSAGE (If Supplied By Facility): CTDIvol = ( 19.79 ) mGy, DLP = ( 1043.02 ) mGycm TECHNIQUE: Transaxial images were obtained from the dome of the diaphragm to the symphysis pubis without oral contrast, and without intravenous contrast. Sagittal and coronal images were reconstructed. Individualized dose optimization techniques were used for this CT. COMPARISON: Comparison is made with prior examination dated July 25, 2019. FINDINGS: Persistent left lower lobe infiltrate and/or scarring with minimal pleural thickening. Rounded atelectasis should be ruled out. The visualized portions of the heart are within normal limits. Normal liver. There are multiple small gallstones. Normal spleen. Normal pancreas. Normal bilateral adrenal glands. Normal right kidney. Normal left kidney. There is a small hiatal hernia. Normal small intestine. Large amount of fecal material is colon. The appendix is visualized and appears normal. There is scattered atherosclerotic calcification of the abdominal aorta and of its major visceral branches., without a demonstrated aneurysm. Normal inferior vena cava. There is borderline retroperitoneal lymphadenopathy with enlarged nodes no greater than 10mm in the short axis diameter. There is a marked degree of distention of the urinary bladder. There is no evidence of ascites. Normal abdominal wall. Normal osseous structures. CT/Abdomen/Pel W ORAL Cont Only IMPRESSION: Markedly distended urinary bladder Large amount of fecal material is seen in the colon. Residual pleural parenchymal changes at the left lung base. Multiple small gallstones. No evidence of ascites. Electronically Signed: Liborio Arzola, at 10:57 EDT , Service support ,
== END ==
PROVIDERS: PCP Family Medicine Geriatric Medicine; Referring Provider Family Medicine; Visit Provider Family Medicine
DX: R18.8 Other ascites (principal)
CPT/HCPCS: 74176

== ENCOUNTER → 2020-01-24 04:00 | Outpatient (REF) | payer MEDICAID, SELFPAY ==
[2020-01-24 08:21] LABS: AST(SGOT) 1275 U/L (15-37); Alanine Aminotransfer ALT/SGPT 930 U/L (13-56); Albumin, Serum 2.2 g/dL (3.2-5.0); Alkaline Phosphatase 210 U/L (45-117); Bilirubin, Direct 6.14 mg/dL (0.00-0.30); Globulin 6.1 g/dL (2.2-4.2); Protein, Total 8.3 g/dL (6.4-8.2)
[2020-01-24 08:28] LABS: BNP,B-Type NATRIURETIC PEPTIDE 25.2 pg/mL (0-100)
== END ==
LOC: OLS.WCC 04:00
PROVIDERS: PCP Family Medicine Geriatric Medicine; Referring Provider Family Medicine; Visit Provider Family Medicine
DX: I50.9 Heart failure, unspecified (principal); R94.5 Abnormal results of liver function studies
CPT/HCPCS: 36415; 80076; 83880

== ENCOUNTER → 2020-01-26 05:00 | Outpatient (REF) | payer MEDICAID, SELFPAY ==
[2020-01-26 08:01] LABS: Erythrocyte Sedimentation Rate > 130 mm/hr (0-30)
[2020-01-26 08:04] LABS: Absolute Lymphocyte Count 2.52 X10^3/uL (0.83-4.51); Basophil# 0.13 X10^3/uL; Basophil% 1.5 % (0-1); Eosinophil# 0.63 X10^3/uL; Eosinophils% 7.5 % (0-5); Hematocrit 35.3 % (37-47); Hemoglobin 11.5 g/dL (12.0-15.0); Lymphocyte # 2.52 X10^3/ul (4.0); Lymphocyte % 29.8 % (19-41); Mean Corp Hgb Conc 32.6 g/dL (32-36); Mean Corpuscular Hgb 28.6 pg (27.0-32.0); Mean Corpuscular Volume 87.8 fL (81-99); Mean Platelet Vol. 12.2 fl (6.2-12.0); Monocyte# 1.18 X10^3/uL; NRBC Flagged by Analyzer 0 % (0-5); Neutrophil # 3.97 X10^3/uL (2.7-7.7); Platelet Count 320 K/mm3 (150-450); RBC Distribution Width CV 19.7 % (11.6-14.6); RBC Distribution Width SD 62.2 fl (35.1-43.9); Red Blood Count 4.02 M/mm3 (4.2-5.4); White Blood Count 8.5 K/mm3 (4.4-11.0)
[2020-01-26 08:22] LABS: Rheumatoid Factor < 10.0 IU/mL (<15)
[2020-01-26 08:47] LABS: International Normalized Ratio 1.1; Prothrombin Time (Protime)PT. 13.9 SECONDS (11.7-14.9)
[2020-01-28 00:46] LABS: ANTINUCLEAR ANTIBODIES DIRECT Negative (Negative)
== END ==
LOC: OLS.WCC 05:00
PROVIDERS: PCP Family Medicine Geriatric Medicine; Visit Provider Family Medicine
DX: R17 Unspecified jaundice (principal)
CPT/HCPCS: 36415; 85025; 85610; 85652; 85730; 86038; 86431

== ENCOUNTER → 2020-02-02 10:20 | Outpatient (REF) | payer MEDICAID, SELFPAY ==
[2020-02-02 11:48] LABS: International Normalized Ratio 1.2; Prothrombin Time (Protime)PT. 14.2 SECONDS (11.7-14.9)
[2020-02-02 11:49] LABS: Partial Thromboplast Time 39.9 Seconds (24.1-36.2)
[2020-02-02 12:13] LABS: AST(SGOT) 1335 U/L (15-37); Alanine Aminotransfer ALT/SGPT 804 U/L (13-56); Albumin, Serum 2.2 g/dL (3.2-5.0); Alkaline Phosphatase 200 U/L (45-117); Bilirubin, Direct 9.49 mg/dL (0.00-0.30); Globulin 6.9 g/dL (2.2-4.2); Protein, Total 9.1 g/dL (6.4-8.2)
== END ==
LOC: OLS.WCC 10:20
PROVIDERS: PCP Family Medicine Geriatric Medicine; Referring Provider Family Medicine; Visit Provider Family Medicine
DX: I11.0 Hypertensive heart disease with heart failure (principal); I50.9 Heart failure, unspecified; E11.9 Type 2 diabetes mellitus without complications; Z79.899 Other long term (current) drug therapy
CPT/HCPCS: 36415; 80076; 85610; 85730

== ENCOUNTER → 2020-02-07 05:00 | Outpatient (REF) | payer MEDICAID, SELFPAY ==
[2020-02-07 09:05] LABS: Hematocrit 38.8 % (37-47); Mean Corp Hgb Conc 30.9 g/dL (32-36); Mean Corpuscular Hgb 28.4 pg (27.0-32.0); Mean Corpuscular Volume 91.9 fL (81-99); Mean Platelet Vol. 11.5 fl (6.2-12.0); POSITIVE MORPHOLOGY YES; Platelet Count 295 K/mm3 (150-450); RBC Distribution Width CV 19.5 % (11.6-14.6); RBC Distribution Width SD 65.1 fl (35.1-43.9); Red Blood Count 4.22 M/mm3 (4.2-5.4); White Blood Count 7.7 K/mm3 (4.4-11.0)
[2020-02-07 09:07] LABS: Scan Indicated on CBC? Y/N YES- FLAGS NOTED
[2020-02-07 09:14] LABS: International Normalized Ratio 1.1; Prothrombin Time (Protime)PT. 13.4 SECONDS (11.7-14.9)
[2020-02-07 09:31] LABS: ALB/GLOB Ratio 0.3 RATIO (0.9-2.4); AST(SGOT) 746 U/L (15-37); Alanine Aminotransfer ALT/SGPT 523 U/L (13-56); Albumin, Serum 2.3 g/dL (3.2-5.0); Alkaline Phosphatase 183 U/L (45-117); Anion Gap 4 (5-15); BUN 13 mg/dL (7-18); BUN/Creat Ratio 15.8 RATIO (10-20); Calcium,Total 9.5 mg/dL (8.5-10.1); Chloride 96 mmol/L (98-107); Creatinine, Serum 0.82 mg/dL (0.55-1.02); EST Glomerular Filtration Rate 75 mL/min (>60); Est Glom Filt Rate - Afr Amer 90 mL/min (>60); Glucose 108 mg/dL (74-106); Potassium 4.3 mmol/L (3.5-5.1); Protein, Total 9.3 g/dL (6.4-8.2); Sodium Level 130 mmol/L (136-145)
[2020-02-07 09:38] LABS: Differential Comment SCANNED
[2020-02-08 16:08] LABS: Immunoglobulin A 333 mg/dL (87-352); Immunoglobulin G 3788 mg/dL (586-1602); PROEL- A/G Ratio 0.4 (0.7-1.7); PROEL- Albumin 2.6 g/dL (2.9-4.4); PROEL- Alpha-1 Globulin 0.3 g/dL (0.0-0.4); PROEL- Alpha-2 Globulin 0.6 g/dL (0.4-1.0); PROEL- Beta Globulin 1.4 g/dL (0.7-1.3); PROEL- Gamma Globulin 3.7 g/dL (0.4-1.8); PROEL- Globulin, Total 5.9 g/dL (2.2-3.9); PROEL- TOTAL PROTEIN 8.5 g/dL (6.0-8.5)
[2020-02-08 20:34] LABS: Immunofixation Result, Serum Comment: (.); Immunoglobulin M 513 mg/dL (26-217)
== END ==
LOC: OLS.WCC 05:00
PROVIDERS: PCP Family Medicine Geriatric Medicine; Referring Provider Family Medicine; Visit Provider Family Medicine
DX: R94.5 Abnormal results of liver function studies (principal)
CPT/HCPCS: 36415; 80053; 82784; 84165; 85027; 85610; 86334

== ENCOUNTER → 2020-02-14 05:00 | Outpatient (REF) | payer MEDICAID, SELFPAY ==
[2020-02-14 08:25] LABS: AST(SGOT) 213 U/L (15-37); Alanine Aminotransfer ALT/SGPT 225 U/L (13-56); Albumin, Serum 2.4 g/dL (3.2-5.0); Alkaline Phosphatase 117 U/L (45-117); Bilirubin, Direct 2.18 mg/dL (0.00-0.30); Globulin 6.2 g/dL (2.2-4.2); Protein, Total 8.6 g/dL (6.4-8.2)
== END ==
LOC: OLS.WCC 05:00
PROVIDERS: PCP Family Medicine Geriatric Medicine; Visit Provider Family Medicine
DX: R17 Unspecified jaundice (principal); Z79.899 Other long term (current) drug therapy
CPT/HCPCS: 36415; 80076

== ENCOUNTER → 2020-02-21 05:00 | Outpatient (REF) | payer MEDICAID, SELFPAY ==
[2020-02-21 07:46] LABS: AST(SGOT) 98 U/L (15-37); Alanine Aminotransfer ALT/SGPT 116 U/L (13-56); Albumin, Serum 2.4 g/dL (3.2-5.0); Alkaline Phosphatase 100 U/L (45-117); Bilirubin, Direct 1.38 mg/dL (0.00-0.30); Globulin 5.7 g/dL (2.2-4.2); Protein, Total 8.1 g/dL (6.4-8.2)
== END ==
LOC: OLS.WCC 05:00
PROVIDERS: PCP Family Medicine Geriatric Medicine; Visit Provider Family Medicine
DX: R17 Unspecified jaundice (principal); Z79.899 Other long term (current) drug therapy
CPT/HCPCS: 36415; 80076

== ENCOUNTER → 2020-02-28 05:00 | Outpatient (REF) | payer MEDICAID, SELFPAY ==
[2020-02-28 08:16] LABS: AST(SGOT) 90 U/L (15-37); Alanine Aminotransfer ALT/SGPT 126 U/L (13-56); Albumin, Serum 2.5 g/dL (3.2-5.0); Alkaline Phosphatase 80 U/L (45-117); Bilirubin, Direct 0.92 mg/dL (0.00-0.30); Globulin 5.4 g/dL (2.2-4.2); Protein, Total 7.9 g/dL (6.4-8.2)
== END ==
LOC: OLS.WCC 05:00
PROVIDERS: PCP Family Medicine Geriatric Medicine; Visit Provider Family Medicine
DX: R17 Unspecified jaundice (principal); Z79.899 Other long term (current) drug therapy
CPT/HCPCS: 36415; 80076

== ENCOUNTER → 2020-03-06 04:00 | Outpatient (REF) | payer MEDICAID, SELFPAY ==
[2020-03-06 07:45] LABS: AST(SGOT) 76 U/L (15-37); Alanine Aminotransfer ALT/SGPT 98 U/L (13-56); Albumin, Serum 2.8 g/dL (3.2-5.0); Alkaline Phosphatase 79 U/L (45-117); Globulin 5.1 g/dL (2.2-4.2); Protein, Total 7.9 g/dL (6.4-8.2)
== END ==
LOC: OLS.WCC 04:00
PROVIDERS: PCP Family Medicine Geriatric Medicine; Visit Provider Family Medicine
DX: I50.9 Heart failure, unspecified (principal); E11.9 Type 2 diabetes mellitus without complications; R17 Unspecified jaundice; Z79.899 Other long term (current) drug therapy
CPT/HCPCS: 36415; 80076

== ENCOUNTER → 2020-03-13 04:00 | Outpatient (REF) | payer MEDICAID, SELFPAY ==
[2020-03-13 08:11] LABS: AST(SGOT) 52 U/L (15-37); Alanine Aminotransfer ALT/SGPT 72 U/L (13-56); Alkaline Phosphatase 84 U/L (45-117); Bilirubin, Direct 0.59 mg/dL (0.00-0.30); Globulin 5.4 g/dL (2.2-4.2); Protein, Total 8.4 g/dL (6.4-8.2)
== END ==
LOC: OLS.WCC 04:00
PROVIDERS: PCP Family Medicine Geriatric Medicine; Visit Provider Family Medicine
DX: I50.9 Heart failure, unspecified (principal); E11.9 Type 2 diabetes mellitus without complications; Z79.899 Other long term (current) drug therapy; R17 Unspecified jaundice
CPT/HCPCS: 36415; 80076

== ENCOUNTER → 2020-03-20 05:00 | Outpatient (REF) | payer MEDICAID, SELFPAY ==
[2020-03-20 08:48] LABS: AST(SGOT) 51 U/L (15-37); Alanine Aminotransfer ALT/SGPT 48 U/L (13-56); Albumin, Serum 2.9 g/dL (3.2-5.0); Alkaline Phosphatase 80 U/L (45-117); Bilirubin, Direct 0.44 mg/dL (0.00-0.30); Globulin 6.1 g/dL (2.2-4.2)
== END ==
LOC: OLS.WCC 05:00
PROVIDERS: PCP Family Medicine Geriatric Medicine; Visit Provider Family Medicine
DX: I50.9 Heart failure, unspecified (principal); E11.9 Type 2 diabetes mellitus without complications; R17 Unspecified jaundice; Z79.899 Other long term (current) drug therapy
CPT/HCPCS: 36415; 80076

== ENCOUNTER → 2020-03-22 10:00 | Outpatient (REF) | payer MEDICAID, SELFPAY ==
[2020-03-22 12:18] LABS: Color, Urine Yellow (Yellow); Glucose, Dipstick Normal (Normal); Ketone-Dipstick 5 mg/dl (Negative); Leukocyte Esterase-Dipstick 500 /ul (Negative); Nitrite-Dipstick Positive (Negative); Occult Blood-Urine 25 /ul (Negative); Protein-Dipstick 15 mg/dl (Negative); Urine Bilirubin Dipstick Negative (Negative); Urine Clarity Sl. Cloudy (Clear); Urine Urobilinogen Normal (Normal)
[2020-03-22 12:31] LABS: Bacteria 2+ /hpf (None Seen); Mucous, Urine 1+ /hpf (<or=2+); Red Blood Cells-Urine 0-5 SEEN /hpf (0-5); Squamous Epithelial Cells - UA 0-5 SEEN /hpf (5-10); White Blood Cells 25-50 SEEN /hpf (0-5)
== END ==
LOC: OLS.WCC 10:00
PROVIDERS: PCP Family Medicine Geriatric Medicine; Visit Provider Family Medicine
DX: R50.9 Fever, unspecified (principal)
CPT/HCPCS: 81001; 87086; 87088

== ENCOUNTER → 2020-03-23 14:48 | Outpatient (REF) | payer MEDICAID, SELFPAY | LOC: OLS.WCC 14:48 | PROVIDERS: PCP Family Medicine Geriatric Medicine; Referring Provider Family Medicine; Visit Provider Family Medicine | DX: Z20.828 Contact with and (suspected) exposure to other viral communicable diseases (principal) | CPT/HCPCS: 87635; U0003 ==

== ENCOUNTER → 2020-04-27 16:45 | Outpatient (REF) | payer MEDICAID, SELFPAY ==
[2020-04-28 08:27] LABS: Color, Urine Yellow (Yellow); Glucose, Dipstick Normal (Normal); Ketone-Dipstick Negative (Negative); Leukocyte Esterase-Dipstick 500 /ul (Negative); Nitrite-Dipstick Positive (Negative); Occult Blood-Urine 10 /ul (Negative); Protein-Dipstick 15 mg/dl (Negative); Urine Bilirubin Dipstick Negative (Negative); Urine Clarity Sl. Cloudy (Clear); Urine Urobilinogen Normal (Normal)
== END ==
LOC: OLS.WCC 16:45
PROVIDERS: PCP Family Medicine Geriatric Medicine; Referring Provider Family Medicine; Visit Provider Family Medicine
DX: R30.0 Dysuria (principal); R33.9 Retention of urine, unspecified
CPT/HCPCS: 81002; 87077; 87086; 87088; 87186

== ENCOUNTER → 2020-05-05 06:00 | Outpatient (REF) | payer MEDICAID, SELFPAY ==
[2020-05-05 07:32] LABS: AST(SGOT) 31 U/L (15-37); Alanine Aminotransfer ALT/SGPT 34 U/L (13-56); Albumin, Serum 3.2 g/dL (3.2-5.0); Alkaline Phosphatase 88 U/L (45-117); Bilirubin, Direct 0.29 mg/dL (0.00-0.30); Globulin 5.3 g/dL (2.2-4.2); Protein, Total 8.5 g/dL (6.4-8.2)
== END ==
LOC: OLS.WCC 06:00
PROVIDERS: PCP Family Medicine Geriatric Medicine; Referring Provider Family Medicine; Visit Provider Family Medicine
DX: Z79.899 Other long term (current) drug therapy (principal)
CPT/HCPCS: 36415; 80076

== ENCOUNTER → 2020-06-05 05:00 | Outpatient (REF) | payer MEDICAID, SELFPAY ==
[2020-06-05 08:36] LABS: AST(SGOT) 26 U/L (15-37); Alanine Aminotransfer ALT/SGPT 31 U/L (13-56); Albumin, Serum 3.4 g/dL (3.2-5.0); Alkaline Phosphatase 91 U/L (45-117); Bilirubin, Direct 0.22 mg/dL (0.00-0.30); Protein, Total 8.4 g/dL (6.4-8.2)
== END ==
LOC: OLS.WCC 05:00
PROVIDERS: PCP Family Medicine Geriatric Medicine; Referring Provider Family Medicine; Visit Provider Family Medicine
DX: I50.9 Heart failure, unspecified (principal); E11.9 Type 2 diabetes mellitus without complications; Z79.899 Other long term (current) drug therapy
CPT/HCPCS: 36415; 80076

== ENCOUNTER → 2020-06-07 05:00 | Outpatient (REF) | payer MEDICAID, SELFPAY ==
[2020-06-07 08:09] LABS: AST(SGOT) 35 U/L (15-37); Alanine Aminotransfer ALT/SGPT 40 U/L (13-56); Albumin, Serum 3.3 g/dL (3.2-5.0); Alkaline Phosphatase 87 U/L (45-117); Bilirubin, Direct 0.16 mg/dL (0.00-0.30); Globulin 4.9 g/dL (2.2-4.2); Protein, Total 8.2 g/dL (6.4-8.2)
== END ==
LOC: OLS.WCC 05:00
PROVIDERS: PCP Family Medicine Geriatric Medicine; Referring Provider Family Medicine; Visit Provider Family Medicine
DX: I50.42 Chronic combined systolic (congestive) and diastolic (congestive) heart failure (principal); G61.9 Inflammatory polyneuropathy, unspecified
CPT/HCPCS: 36415; 80076

== ENCOUNTER → 2020-07-13 06:00 | Outpatient (REF) | payer MEDICAID, SELFPAY ==
[2020-07-13 08:40] LABS: Hematocrit 42.2 % (37-47); Hemoglobin 13.6 g/dL (12.0-15.0); Mean Corp Hgb Conc 32.2 g/dL (32-36); Mean Corpuscular Hgb 30.1 pg (27.0-32.0); Mean Corpuscular Volume 93.4 fL (81-99); Mean Platelet Vol. 11.3 fl (6.2-12.0); Platelet Count 274 K/mm3 (150-450); RBC Distribution Width CV 16.5 % (11.6-14.6); RBC Distribution Width SD 56.2 fl (35.1-43.9); Red Blood Count 4.52 M/mm3 (4.2-5.4); White Blood Count 8.7 K/mm3 (4.4-11.0)
[2020-07-13 09:02] LABS: Hemoglobin A1c 6.2 % (3.8-5.6)
[2020-07-13 09:14] LABS: ALB/GLOB Ratio 0.8 RATIO (0.9-2.4); AST(SGOT) 24 U/L (15-37); Alanine Aminotransfer ALT/SGPT 29 U/L (13-56); Albumin, Serum 3.5 g/dL (3.2-5.0); Alkaline Phosphatase 91 U/L (45-117); Anion Gap 8 (5-15); BUN 30 mg/dL (7-18); BUN/Creat Ratio 22.7 RATIO (10-20); Calcium,Total 9.9 mg/dL (8.5-10.1); Chloride 98 mmol/L (98-107); Creatinine, Serum 1.32 mg/dL (0.55-1.02); EST Glomerular Filtration Rate 43 mL/min (>60); Est Glom Filt Rate - Afr Amer 52 mL/min (>60); Globulin 4.5 g/dL (2.2-4.2); Glucose 94 mg/dL (74-106); Potassium 3.5 mmol/L (3.5-5.1); Sodium Level 135 mmol/L (136-145); Vitamin D,25 Hydroxy 50.7 ng/mL
== END ==
LOC: OLS.WCC 06:00
PROVIDERS: PCP Family Medicine Geriatric Medicine; Referring Provider Family Medicine; Visit Provider Family Medicine
DX: I50.9 Heart failure, unspecified (principal); E11.9 Type 2 diabetes mellitus without complications
CPT/HCPCS: 36415; 80053; 82306; 83036; 85027

== ENCOUNTER → 2020-09-14 05:00 | Outpatient (REF) | payer MEDICAID, SELFPAY ==
[2020-09-14 07:54] LABS: AST(SGOT) 21 U/L (15-37); Alanine Aminotransfer ALT/SGPT 24 U/L (13-56); Albumin, Serum 3.3 g/dL (3.2-5.0); Alkaline Phosphatase 102 U/L (45-117); Bilirubin, Direct 0.11 mg/dL (0.00-0.30); Globulin 4.8 g/dL (2.2-4.2); Protein, Total 8.1 g/dL (6.4-8.2)
== END ==
LOC: OLS.WCC 05:00
PROVIDERS: PCP Family Medicine Geriatric Medicine; Referring Provider Family Medicine; Visit Provider Family Medicine
DX: I50.9 Heart failure, unspecified (principal); E11.9 Type 2 diabetes mellitus without complications
CPT/HCPCS: 36415; 80076

== ENCOUNTER → 2020-12-11 04:00 | Outpatient (REF) | payer MEDICAID, SELFPAY ==
[2020-12-11 09:04] LABS: AST(SGOT) 23 U/L (15-37); Alanine Aminotransfer ALT/SGPT 25 U/L (13-56); Albumin, Serum 3.1 g/dL (3.2-5.0); Alkaline Phosphatase 97 U/L (45-117); Bilirubin, Direct 0.09 mg/dL (0.00-0.30); Globulin 4.1 g/dL (2.2-4.2); Protein, Total 7.2 g/dL (6.4-8.2)
== END ==
LOC: OLS.WCC 04:00
PROVIDERS: PCP Family Medicine Geriatric Medicine; Visit Provider Family Medicine
DX: I50.9 Heart failure, unspecified (principal); E11.9 Type 2 diabetes mellitus without complications; Z79.899 Other long term (current) drug therapy
CPT/HCPCS: 36415; 80076

== ENCOUNTER → 2021-01-11 05:00 | Outpatient (REF) | payer MEDICAID, SELFPAY ==
[2021-01-11 08:11] LABS: Hematocrit 41.4 % (37-47); Mean Corp Hgb Conc 31.4 g/dL (32-36); Mean Corpuscular Hgb 30.6 pg (27.0-32.0); Mean Corpuscular Volume 97.4 fL (81-99); Mean Platelet Vol. 10.6 fl (6.2-12.0); Platelet Count 292 K/mm3 (150-450); RBC Distribution Width CV 13.5 % (11.6-14.6); RBC Distribution Width SD 47.9 fl (35.1-43.9); Red Blood Count 4.25 M/mm3 (4.2-5.4); White Blood Count 7.6 K/mm3 (4.4-11.0)
[2021-01-11 08:24] LABS: ALB/GLOB Ratio 0.7 RATIO (0.9-2.4); AST(SGOT) 17 U/L (15-37); Alanine Aminotransfer ALT/SGPT 21 U/L (13-56); Albumin, Serum 3.2 g/dL (3.2-5.0); Alkaline Phosphatase 114 U/L (45-117); Anion Gap 6 (5-15); BUN 28 mg/dL (7-18); BUN/Creat Ratio 21.5 RATIO (10-20); Calcium,Total 9.8 mg/dL (8.5-10.1); Chloride 100 mmol/L (98-107); EST Glomerular Filtration Rate 44 mL/min (>60); Est Glom Filt Rate - Afr Amer 53 mL/min (>60); Globulin 4.3 g/dL (2.2-4.2); Glucose 109 mg/dL (74-106); Potassium 4.1 mmol/L (3.5-5.1); Protein, Total 7.5 g/dL (6.4-8.2); Sodium Level 139 mmol/L (136-145)
[2021-01-11 08:25] LABS: Vitamin D,25 Hydroxy 67.9 ng/mL
[2021-01-11 08:36] LABS: Hemoglobin A1c 6.6 % (3.8-5.6)
== END ==
LOC: OLS.WCC 05:00
PROVIDERS: PCP Family Medicine Geriatric Medicine; Visit Provider Family Medicine
DX: I11.0 Hypertensive heart disease with heart failure (principal); I50.9 Heart failure, unspecified; E11.9 Type 2 diabetes mellitus without complications; Z79.899 Other long term (current) drug therapy
CPT/HCPCS: 36415; 80053; 82306; 83036; 85027

== ENCOUNTER → 2021-03-13 05:00 | Outpatient (REF) | payer MEDICAID, SELFPAY ==
[2021-03-13 09:14] LABS: AST(SGOT) 20 U/L (15-37); Alanine Aminotransfer ALT/SGPT 33 U/L (13-56); Albumin, Serum 3.7 g/dL (3.2-5.0); Alkaline Phosphatase 118 U/L (45-117); Bilirubin, Direct 0.11 mg/dL (0.00-0.30); Globulin 4.6 g/dL (2.2-4.2); Protein, Total 8.3 g/dL (6.4-8.2)
== END ==
LOC: OLS.WCC 05:00
PROVIDERS: PCP Family Medicine Geriatric Medicine; Referring Provider Family Medicine; Visit Provider Family Medicine
DX: I50.9 Heart failure, unspecified (principal); E11.9 Type 2 diabetes mellitus without complications
CPT/HCPCS: 36415; 80076

== ENCOUNTER → 2021-04-04 12:30 | Outpatient (REF) | payer MEDICAID, SELFPAY ==
[2021-04-05 06:56] LABS: Color, Urine Yellow (Yellow); Glucose, Dipstick Normal (Normal); Ketone-Dipstick Negative (Negative); Leukocyte Esterase-Dipstick 25 /ul (Negative); Nitrite-Dipstick Negative (Negative); Occult Blood-Urine Negative /ul (Negative); Protein-Dipstick Negative (Negative); Specific Gravity, Urine 1.005 (1.002-1.030); Urine Bilirubin Dipstick Negative (Negative); Urine Clarity Clear (Clear); Urine Urobilinogen Normal (Normal)
== END ==
LOC: OLS.WCC 12:30
PROVIDERS: PCP Family Medicine Geriatric Medicine; Referring Provider Family Medicine; Visit Provider Family Medicine
DX: N39.0 Urinary tract infection, site not specified (principal)
CPT/HCPCS: 81002; 87086; 87088

== ENCOUNTER → 2021-04-19 05:00 | Outpatient (REF) | payer MEDICAID, SELFPAY ==
[2021-04-19 08:51] LABS: Hematocrit 44.6 % (37-47); Hemoglobin 13.7 g/dL (12.0-15.0); Mean Corp Hgb Conc 30.7 g/dL (32-36); Mean Corpuscular Hgb 30.6 pg (27.0-32.0); Mean Corpuscular Volume 99.6 fL (81-99); Mean Platelet Vol. 10.6 fl (6.2-12.0); Platelet Count 260 K/mm3 (150-450); RBC Distribution Width CV 13.7 % (11.6-14.6); RBC Distribution Width SD 50.5 fl (35.1-43.9); Red Blood Count 4.48 M/mm3 (4.2-5.4); White Blood Count 7.8 K/mm3 (4.4-11.0)
[2021-04-19 09:14] LABS: ALB/GLOB Ratio 0.7 RATIO (0.9-2.4); AST(SGOT) 23 U/L (15-37); Alanine Aminotransfer ALT/SGPT 29 U/L (13-56); Albumin, Serum 3.6 g/dL (3.2-5.0); Alkaline Phosphatase 101 U/L (45-117); Anion Gap 6 (5-15); BUN 31 mg/dL (7-18); BUN/Creat Ratio 18.5 RATIO (10-20); Calcium,Total 9.7 mg/dL (8.5-10.1); Chloride 104 mmol/L (98-107); Creatinine, Serum 1.68 mg/dL (0.55-1.02); EST Glomerular Filtration Rate 33 mL/min (>60); Est Glom Filt Rate - Afr Amer 39 mL/min (>60); Glucose 129 mg/dL (74-106); Potassium 4.2 mmol/L (3.5-5.1); Protein, Total 8.6 g/dL (6.4-8.2); Sodium Level 139 mmol/L (136-145)
[2021-04-19 09:18] LABS: Valproic Acid (Depakene) Level 77 ug/mL (50-100)
== END ==
LOC: OLS.WCC 05:00
PROVIDERS: PCP Family Medicine Geriatric Medicine; Visit Provider Family Medicine
DX: Z79.899 Other long term (current) drug therapy (principal)
CPT/HCPCS: 36415; 80053; 80164; 82140; 85027

== ENCOUNTER → 2021-07-13 04:00 | Outpatient (REF) | payer MEDICAID, SELFPAY ==
[2021-07-13 09:19] LABS: Hematocrit 42.8 % (37-47); Hemoglobin 13.7 g/dL (12.0-15.0); Mean Corpuscular Hgb 30.5 pg (27.0-32.0); Mean Corpuscular Volume 95.3 fL (81-99); Mean Platelet Vol. 11.3 fl (6.2-12.0); Platelet Count 229 K/mm3 (150-450); RBC Distribution Width CV 13.4 % (11.6-14.6); RBC Distribution Width SD 46.8 fl (35.1-43.9); Red Blood Count 4.49 M/mm3 (4.2-5.4); White Blood Count 6.7 K/mm3 (4.4-11.0)
[2021-07-13 09:41] LABS: ALB/GLOB Ratio 0.8 RATIO (0.9-2.4); AST(SGOT) 21 U/L (15-37); Alanine Aminotransfer ALT/SGPT 37 U/L (13-56); Albumin, Serum 3.5 g/dL (3.2-5.0); Alkaline Phosphatase 106 U/L (45-117); Anion Gap 5 (5-15); BUN 37 mg/dL (7-18); BUN/Creat Ratio 20.9 RATIO (10-20); Calcium,Total 9.7 mg/dL (8.5-10.1); Chloride 103 mmol/L (98-107); Creatinine, Serum 1.77 mg/dL (0.55-1.02); EST Glomerular Filtration Rate 31 mL/min (>60); Est Glom Filt Rate - Afr Amer 37 mL/min (>60); Globulin 4.5 g/dL (2.2-4.2); Glucose 96 mg/dL (74-106); Potassium 4.3 mmol/L (3.5-5.1); Sodium Level 140 mmol/L (136-145)
[2021-07-13 09:42] LABS: Hemoglobin A1c 6.1 % (3.8-5.6)
[2021-07-13 09:47] LABS: Vitamin D,25 Hydroxy 57.5 ng/mL
== END ==
LOC: OLS.WCC 04:00
PROVIDERS: PCP Family Medicine Geriatric Medicine; Referring Provider Family Medicine; Visit Provider Family Medicine
DX: I50.9 Heart failure, unspecified (principal); F03.90 Unspecified dementia, unspecified severity, without behavioral disturbance, psychotic disturbance, mood disturbance, and anxiety; E11.9 Type 2 diabetes mellitus without complications; Z79.899 Other long term (current) drug therapy
CPT/HCPCS: 36415; 80053; 82306; 83036; 85027

== ENCOUNTER → 2021-08-17 | Outpatient (REF) | payer MEDICAID, SELFPAY ==
[2021-08-17 06:49] LABS: Bacteria 0 SEEN /hpf (None Seen); Red Blood Cells-Urine 0 SEEN /hpf (0-5); Squamous Epithelial Cells - UA 0 SEEN /hpf (5-10); White Blood Cells 0 SEEN /hpf (0-5)
[2021-08-17 07:26] LABS: Hematocrit 48.3 % (37-47); Hemoglobin 15.4 g/dL (12.0-15.0); Mean Corp Hgb Conc 31.9 g/dL (32-36); Mean Corpuscular Hgb 29.5 pg (27.0-32.0); Mean Corpuscular Volume 92.5 fL (81-99); Platelet Count 337 K/mm3 (150-450); RBC Distribution Width CV 13.6 % (11.6-14.6); RBC Distribution Width SD 46.5 fl (35.1-43.9); Red Blood Count 5.22 M/mm3 (4.2-5.4); White Blood Count 10.1 K/mm3 (4.4-11.0)
[2021-08-17 07:29] LABS: Color, Urine Yellow (Yellow); Glucose, Dipstick 1000 mg/dl (Normal); Ketone-Dipstick Negative (Negative); Leukocyte Esterase-Dipstick Negative /ul (Negative); Nitrite-Dipstick Negative (Negative); Occult Blood-Urine Negative /ul (Negative); Protein-Dipstick 30 mg/dl (Negative); Specific Gravity, Urine 1.015 (1.002-1.030); Urine Bilirubin Dipstick Negative (Negative); Urine Clarity Clear (Clear); Urine Urobilinogen Normal (Normal)
[2021-08-17 07:48] LABS: ALB/GLOB Ratio 0.6 RATIO (0.9-2.4); AST(SGOT) 35 U/L (15-37); Alanine Aminotransfer ALT/SGPT 65 U/L (13-56); Albumin, Serum 2.9 g/dL (3.2-5.0); Alkaline Phosphatase 126 U/L (45-117); Anion Gap 9 (5-15); BUN 58 mg/dL (7-18); BUN/Creat Ratio 30.5 RATIO (10-20); Chloride 111 mmol/L (98-107); EST Glomerular Filtration Rate 28 mL/min (>60); Est Glom Filt Rate - Afr Amer 34 mL/min (>60); Globulin 5.1 g/dL (2.2-4.2); Glucose 167 mg/dL (74-106); Potassium 3.8 mmol/L (3.5-5.1); Sodium Level 143 mmol/L (136-145); Thyroid Stim Hormone (TSH) 2.15 uIU/mL (0.358-3.74)
[2021-08-17 07:48] LABS: Hyaline Cast 0-5 SEEN /lpf (0-5); Mucous, Urine RARE /hpf (<or=2+)
== END | disposition home or self-care (01) ==
LOC: OLS.WCC 04:00
PROVIDERS: PCP Family Medicine Geriatric Medicine; Visit Provider Family Medicine
DX: E11.9 Type 2 diabetes mellitus without complications (principal)
CPT/HCPCS: 36415; 80053; 81001; 84443; 85027; 87086

== ENCOUNTER → 2021-08-27 | Outpatient (REF) | payer MEDICAID, SELFPAY | END | disposition home or self-care (01) | LOC: OLS.WCC 15:39 | PROVIDERS: PCP Family Medicine Geriatric Medicine; Referring Provider Family Medicine; Visit Provider Family Medicine | DX: Z20.822 Contact with and (suspected) exposure to COVID-19 (principal) | CPT/HCPCS: 87635; U0003; U0005 ==

== ENCOUNTER 2021-09-13 04:00 | Outpatient (REF) | payer MEDICAID, SELFPAY ==
[2021-09-13 07:56] LABS: AST(SGOT) 17 U/L (15-37); Alanine Aminotransfer ALT/SGPT 25 U/L (13-56); Albumin, Serum 2.6 g/dL (3.2-5.0); Alkaline Phosphatase 86 U/L (45-117); Bilirubin, Direct 0.08 mg/dL (0.00-0.30); Protein, Total 6.6 g/dL (6.4-8.2)
== END 2021-09-13 23:59 | disposition home or self-care (01) ==
LOC: OLS.WCC 04:00
PROVIDERS: PCP Family Medicine Geriatric Medicine; Referring Provider Family Medicine; Visit Provider Family Medicine
DX: I50.9 Heart failure, unspecified (principal); E11.9 Type 2 diabetes mellitus without complications
CPT/HCPCS: 36415; 80076

== ENCOUNTER → 2021-10-11 | Outpatient (REF) | payer MEDICAID, SELFPAY ==
[2021-10-11 08:34] LABS: Hematocrit 37.6 % (37-47); Mean Corp Hgb Conc 31.9 g/dL (32-36); Mean Corpuscular Hgb 31.1 pg (27.0-32.0); Mean Corpuscular Volume 97.4 fL (81-99); Platelet Count 236 K/mm3 (150-450); RBC Distribution Width CV 14.5 % (11.6-14.6); RBC Distribution Width SD 51.9 fl (35.1-43.9); Red Blood Count 3.86 M/mm3 (4.2-5.4); White Blood Count 7.9 K/mm3 (4.4-11.0)
[2021-10-11 08:50] LABS: ALB/GLOB Ratio 0.9 RATIO (0.9-2.4); AST(SGOT) 15 U/L (15-37); Alanine Aminotransfer ALT/SGPT 23 U/L (13-56); Albumin, Serum 3.1 g/dL (3.2-5.0); Alkaline Phosphatase 86 U/L (45-117); Anion Gap 3 (5-15); BUN 23 mg/dL (7-18); BUN/Creat Ratio 17.8 RATIO (10-20); Calcium,Total 8.7 mg/dL (8.5-10.1); Chloride 106 mmol/L (98-107); Creatinine, Serum 1.29 mg/dL (0.55-1.02); EST Glomerular Filtration Rate 44 mL/min (>60); Est Glom Filt Rate - Afr Amer 53 mL/min (>60); Globulin 3.6 g/dL (2.2-4.2); Glucose 156 mg/dL (74-106); Potassium 3.4 mmol/L (3.5-5.1); Protein, Total 6.7 g/dL (6.4-8.2); Sodium Level 139 mmol/L (136-145)
== END | disposition home or self-care (01) ==
LOC: OLS.WCC 04:00
PROVIDERS: PCP Family Medicine Geriatric Medicine; Referring Provider Family Medicine; Visit Provider Family Medicine
DX: I11.0 Hypertensive heart disease with heart failure (principal); I50.9 Heart failure, unspecified; E11.9 Type 2 diabetes mellitus without complications
CPT/HCPCS: 36415; 80053; 85027

== ENCOUNTER → 2021-12-12 05:00 | Outpatient (REF) | payer MEDICAID, SELFPAY ==
[2021-12-12 08:24] LABS: AST(SGOT) 15 U/L (15-37); Alanine Aminotransfer ALT/SGPT 18 U/L (13-56); Alkaline Phosphatase 83 U/L (45-117); Bilirubin, Direct 0.13 mg/dL (0.00-0.30); Globulin 3.9 g/dL (2.2-4.2); Protein, Total 6.9 g/dL (6.4-8.2)
== END ==
LOC: OLS.WCC 05:00
PROVIDERS: PCP Family Medicine Geriatric Medicine; Visit Provider Family Medicine
DX: I50.9 Heart failure, unspecified (principal); E11.9 Type 2 diabetes mellitus without complications
CPT/HCPCS: 36415; 80076

== ENCOUNTER → 2021-12-12 | Outpatient (REF) | payer MEDICAID, SELFPAY ==
[2021-12-13 08:11] LABS: Mucous, Urine 0 SEEN /hpf (<or=2+)
[2021-12-13 08:33] LABS: Color, Urine Yellow (Yellow); Glucose, Dipstick 250 mg/dl (Normal); Ketone-Dipstick Negative (Negative); Leukocyte Esterase-Dipstick 500 /ul (Negative); Nitrite-Dipstick Positive (Negative); Occult Blood-Urine 10 /ul (Negative); Protein-Dipstick 30 mg/dl (Negative); Specific Gravity, Urine 1.015 (1.002-1.030); Urine Bilirubin Dipstick Negative (Negative); Urine Clarity Cloudy (Clear); Urine Urobilinogen Normal (Normal)
[2021-12-13 08:38] LABS: Red Blood Cells-Urine 0-5 SEEN /hpf (0-5); Squamous Epithelial Cells - UA 0-5 SEEN /hpf (5-10); White Blood Cells 50-100 SEEN /hpf (0-5)
[2021-12-13 08:39] LABS: Bacteria 4+ /hpf (None Seen)
== END | disposition home or self-care (01) ==
LOC: OLS.WCC 08:11
PROVIDERS: PCP Family Medicine Geriatric Medicine; Visit Provider Family Medicine
DX: N39.0 Urinary tract infection, site not specified (principal); I50.9 Heart failure, unspecified; E11.9 Type 2 diabetes mellitus without complications
CPT/HCPCS: 36415; 80076; 81001; 87077; 87086; 87088; 87186

== ENCOUNTER → 2022-01-11 | Outpatient (REF) | payer MEDICAID, SELFPAY ==
[2022-01-11 09:06] LABS: Hematocrit 41.4 % (37-47); Hemoglobin 12.9 g/dL (12.0-15.0); Mean Corp Hgb Conc 31.2 g/dL (32-36); Mean Corpuscular Hgb 30.6 pg (27.0-32.0); Mean Corpuscular Volume 98.1 fL (81-99); Mean Platelet Vol. 10.8 fl (6.2-12.0); Platelet Count 195 K/mm3 (150-450); RBC Distribution Width CV 13.1 % (11.6-14.6); RBC Distribution Width SD 46.3 fl (35.1-43.9); Red Blood Count 4.22 M/mm3 (4.2-5.4); White Blood Count 6.6 K/mm3 (4.4-11.0)
[2022-01-11 09:33] LABS: ALB/GLOB Ratio 0.8 RATIO (0.9-2.4); AST(SGOT) 15 U/L (15-37); Alanine Aminotransfer ALT/SGPT 26 U/L (13-56); Albumin, Serum 3.4 g/dL (3.2-5.0); Alkaline Phosphatase 92 U/L (45-117); Anion Gap 3 (5-15); BUN 26 mg/dL (7-18); BUN/Creat Ratio 16.5 RATIO (10-20); Calcium,Total 9.3 mg/dL (8.5-10.1); Chloride 107 mmol/L (98-107); Creatinine, Serum 1.58 mg/dL (0.55-1.02); EST Glomerular Filtration Rate 35 mL/min (>60); Est Glom Filt Rate - Afr Amer 42 mL/min (>60); Globulin 4.1 g/dL (2.2-4.2); Glucose 158 mg/dL (74-106); Potassium 4.5 mmol/L (3.5-5.1); Protein, Total 7.5 g/dL (6.4-8.2); Sodium Level 140 mmol/L (136-145)
[2022-01-11 09:57] LABS: Valproic Acid (Depakene) Level < 3 ug/mL (50-100)
== END | disposition home or self-care (01) ==
LOC: OLS.WCC 05:00
PROVIDERS: PCP Family Medicine Geriatric Medicine; Visit Provider Family Medicine
DX: E11.9 Type 2 diabetes mellitus without complications (principal); I50.9 Heart failure, unspecified; Z79.899 Other long term (current) drug therapy
CPT/HCPCS: 36415; 80053; 80164; 83036; 85027

== ENCOUNTER → 2022-03-04 | Outpatient (REF) | payer MEDICAID, SELFPAY ==
[2022-03-04 09:07] LABS: Valproic Acid (Depakene) Level 28 ug/mL (50-100)
[2022-03-04 09:09] LABS: ALB/GLOB Ratio 0.7 RATIO (0.9-2.4); AST(SGOT) 30 U/L (15-37); Alanine Aminotransfer ALT/SGPT 31 U/L (13-56); Albumin, Serum 2.9 g/dL (3.2-5.0); Alkaline Phosphatase 79 U/L (45-117); Anion Gap 4 (5-15); BUN 24 mg/dL (7-18); BUN/Creat Ratio 15.7 RATIO (10-20); Calcium,Total 9.3 mg/dL (8.5-10.1); Chloride 104 mmol/L (98-107); Creatinine, Serum 1.53 mg/dL (0.55-1.02); EST Glomerular Filtration Rate 36 mL/min (>60); Est Glom Filt Rate - Afr Amer 44 mL/min (>60); Globulin 4.3 g/dL (2.2-4.2); Glucose 126 mg/dL (74-106); Potassium 3.7 mmol/L (3.5-5.1); Protein, Total 7.2 g/dL (6.4-8.2); Sodium Level 142 mmol/L (136-145)
== END | disposition home or self-care (01) ==
LOC: OLS.WCC 05:00
PROVIDERS: PCP Family Medicine Geriatric Medicine; Visit Provider Family Medicine
DX: I50.9 Heart failure, unspecified (principal); E11.9 Type 2 diabetes mellitus without complications; Z79.899 Other long term (current) drug therapy
CPT/HCPCS: 36415; 80053; 80164; 82248

== ENCOUNTER → 2022-03-27 | Outpatient (REF) | payer MEDICAID, SELFPAY ==
[2022-03-27 09:00] LABS: Hematocrit 41.9 % (37-47); Hemoglobin 12.7 g/dL (12.0-15.0); Mean Corp Hgb Conc 30.3 g/dL (32-36); Mean Corpuscular Volume 98.8 fL (81-99); Mean Platelet Vol. 10.9 fl (6.2-12.0); Platelet Count 226 K/mm3 (150-450); RBC Distribution Width CV 13.7 % (11.6-14.6); RBC Distribution Width SD 50.3 fl (35.1-43.9); Red Blood Count 4.24 M/mm3 (4.2-5.4); White Blood Count 5.6 K/mm3 (4.4-11.0)
[2022-03-27 09:14] LABS: Valproic Acid (Depakene) Level 39 ug/mL (50-100)
[2022-03-27 09:26] LABS: ALB/GLOB Ratio 0.7 RATIO (0.9-2.4); AST(SGOT) 20 U/L (15-37); Alanine Aminotransfer ALT/SGPT 23 U/L (13-56); Albumin, Serum 3.1 g/dL (3.2-5.0); Alkaline Phosphatase 90 U/L (45-117); Anion Gap 5 (5-15); BUN 23 mg/dL (7-18); BUN/Creat Ratio 12.8 RATIO (10-20); Bilirubin, Direct 0.07 mg/dL (0.00-0.30); Calcium,Total 9.2 mg/dL (8.5-10.1); Chloride 104 mmol/L (98-107); EST Glomerular Filtration Rate 30 mL/min (>60); Est Glom Filt Rate - Afr Amer 36 mL/min (>60); Globulin 4.7 g/dL (2.2-4.2); Glucose 108 mg/dL (74-106); Potassium 4.3 mmol/L (3.5-5.1); Protein, Total 7.8 g/dL (6.4-8.2); Sodium Level 139 mmol/L (136-145); Thyroid Stim Hormone (TSH) 3.49 uIU/mL (0.358-3.74)
[2022-03-27 09:45] LABS: Vitamin D,25 Hydroxy 34.4 ng/mL
== END | disposition home or self-care (01) ==
LOC: OLS.WCC 05:00
PROVIDERS: PCP Family Medicine Geriatric Medicine; Visit Provider Family Medicine
DX: I50.42 Chronic combined systolic (congestive) and diastolic (congestive) heart failure (principal); G61.9 Inflammatory polyneuropathy, unspecified; F39 Unspecified mood [affective] disorder; I73.9 Peripheral vascular disease, unspecified; E55.9 Vitamin D deficiency, unspecified; M62.81 Muscle weakness (generalized); R00.0 Tachycardia, unspecified; Z79.899 Other long term (current) drug therapy
CPT/HCPCS: 36415; 80053; 80164; 82248; 82306; 84443; 85027

== ENCOUNTER → 2022-06-26 | Outpatient (REF) | payer MEDICAID, SELFPAY ==
[2022-06-26 09:27] LABS: Hematocrit 39.5 % (37-47); Hemoglobin 12.6 g/dL (12.0-15.0); Mean Corp Hgb Conc 31.9 g/dL (32-36); Mean Corpuscular Hgb 31.3 pg (27.0-32.0); Mean Platelet Vol. 9.7 fl (6.2-12.0); Platelet Count 333 K/mm3 (150-450); RBC Distribution Width CV 14.8 % (11.6-14.6); RBC Distribution Width SD 53.6 fl (35.1-43.9); Red Blood Count 4.03 M/mm3 (4.2-5.4); White Blood Count 5.6 K/mm3 (4.4-11.0)
[2022-06-26 09:46] LABS: Vitamin D,25 Hydroxy 44.5 ng/mL
[2022-06-26 09:53] LABS: Valproic Acid (Depakene) Level 24 ug/mL (50-100)
[2022-06-26 09:54] LABS: ALB/GLOB Ratio 0.8 RATIO (0.9-2.4); AST(SGOT) 14 U/L (15-37); Alanine Aminotransfer ALT/SGPT 19 U/L (13-56); Albumin, Serum 3.3 g/dL (3.2-5.0); Alkaline Phosphatase 95 U/L (45-117); Anion Gap 6 (5-15); BUN 21 mg/dL (7-18); BUN/Creat Ratio 15.1 RATIO (10-20); Bilirubin, Direct 0.09 mg/dL (0.00-0.30); Calcium,Total 9.4 mg/dL (8.5-10.1); Chloride 106 mmol/L (98-107); Creatinine, Serum 1.39 mg/dL (0.55-1.02); EST Glomerular Filtration Rate 40 mL/min (>60); Est Glom Filt Rate - Afr Amer 49 mL/min (>60); Globulin 4.1 g/dL (2.2-4.2); Glucose 126 mg/dL (74-106); Potassium 4.5 mmol/L (3.5-5.1); Protein, Total 7.4 g/dL (6.4-8.2); Sodium Level 139 mmol/L (136-145)
[2022-06-26 10:05] LABS: Hemoglobin A1c 6.7 % (3.8-5.6)
== END | disposition home or self-care (01) ==
LOC: OLS.WCC 05:00
PROVIDERS: PCP Family Medicine Geriatric Medicine; Visit Provider Family Medicine
DX: E11.9 Type 2 diabetes mellitus without complications (principal); I50.9 Heart failure, unspecified; Z79.899 Other long term (current) drug therapy
CPT/HCPCS: 36415; 80053; 80164; 82248; 82306; 83036; 85027

== ENCOUNTER 2022-07-02 16:39 | Inpatient (IN) | payer MEDICAID, SELFPAY ==
[2022-07-02] VITALS (7 sets, daily range): BP systolic 121–141; BP diastolic 73–89; PULSE 81–90; RESP 15–16; TEMP 36.4–36.8; O2SAT 88–93; BMI 34.2; BMI 32.5
--- NOTE | 2022-07-02 17:25 | RAD_ITS ---
STUDY: X-RAY CHEST REASON FOR EXAM: Female, 67 years old. AMS TECHNIQUE: Single AP portable view of the chest. COMPARISON: 07/25/2019 FINDINGS: The patient is rotated to the left. Focal alveolar opacity in the lower right lung consistent with right lower lobe pneumonia. There is no demonstrated pleural abnormality. Normal size heart. Normal mediastinum and ricky. Normal visualized pulmonary arteries. Normal visualized aortic arch and descending thoracic aorta. Normal visualized thoracic spine. Multiple healed left rib fractures. There is no demonstrated abnormality of the visualized soft tissue structures of the upper abdomen. RAD/Chest 1 View (Portable) IMPRESSION: Focal right lower lobe pneumonia. Electronically Signed: Grant Fishman MD at 18:00 EST ,
[2022-07-02 17:32] LABS: Absolute Lymphocyte Count 1.69 X10^3/uL (0.83-4.51); Absolute Neutrophil Count 3.9 X10^3/uL (2.0-7.7); Basophil# 0.07 X10^3/uL; Basophil% 1.1 % (0-1); Eosinophil# 0.01 X10^3/uL; Eosinophils% 0.2 % (0-5); Hematocrit 42.6 % (37-47); Hemoglobin 12.9 g/dL (12.0-15.0); Lymphocyte # 1.69 X10^3/ul (0.83-4.51); Mean Corp Hgb Conc 30.3 g/dL (32-36); Mean Corpuscular Hgb 30.4 pg (27.0-32.0); Mean Corpuscular Volume 100.5 fL (81-99); Mean Platelet Vol. 9.9 fl (6.2-12.0); Monocyte# 0.55 X10^3/uL; Monocyte% 8.8 % (0-10); NRBC Flagged by Analyzer 0 % (0-5); Neutrophil # 3.91 X10^3/uL (2.7-7.7); Neutrophil % 62.6 % (47-70); Platelet Count 260 K/mm3 (150-450); RBC Distribution Width SD 55.9 fl (35.1-43.9); Red Blood Count 4.24 M/mm3 (4.2-5.4); White Blood Count 6.3 K/mm3 (4.4-11.0)
[2022-07-02 17:40] LABS: ALB/GLOB Ratio 0.9 RATIO (0.9-2.4); AST(SGOT) 16 U/L (15-37); Alanine Aminotransfer ALT/SGPT 22 U/L (13-56); Albumin, Serum 3.6 g/dL (3.2-5.0); Alkaline Phosphatase 114 U/L (45-117); Anion Gap 6 (5-15); BUN 22 mg/dL (7-18); Calcium,Total 9.6 mg/dL (8.5-10.1); Chloride 105 mmol/L (98-107); Creatinine, Serum 1.57 mg/dL (0.55-1.02); EST Glomerular Filtration Rate 35 mL/min (>60); Est Glom Filt Rate - Afr Amer 43 mL/min (>60); Estimated Creatinine Clearance 28.25 ml/min; Glucose 112 mg/dL (74-106); Potassium 4.1 mmol/L (3.5-5.1); Protein, Total 7.6 g/dL (6.4-8.2); Sodium Level 141 mmol/L (136-145)
[2022-07-02 17:52] LABS: Alcohol, Blood (Medical)-Serum < 3.0 mg/dL
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
--- NOTE | 2022-07-02 19:38 | CM.ED ---
TAY spoke to Adam at [facility] and advised patient has pneumonia which may be attributing to her behavior. Adam said that he was advised that patient was a danger to others and could not return. TAY advised that this is patient's residence, [facility], and as she is medicaid they need to give her notice. Adam said that he will call his administration. TAY spoke to MD Manjarrez. MD Miranda had spoken to MD Manjarrez. Patient is being admitted for medical due to pneumonia. TAY called Libia at Crisis. Patient is admitted medically. TAY called Adam at [facility]. Advised patient is being admitted medically. Kathryn CHAVEZ
--- NOTE | 2022-07-02 19:55 | PCM.HP.STD ---
HPI - General General Date of Admission: 07/02/22 Date of Service: 07/02/22 Chief Complaint: hypoxia with ambulation HPI Narrative JINA MARK, is a 67 F with a significant history of schizophrenia; and recurrence of major depressive disorder who was originally sent from the assisted because of increasing agitation above her baseline. At the emergency department patient could not contribute to history. Because of increasing agitation at the nursing facility that she is at has been trying to get her into a [facility] facility. She was brought to the emergency department for medical clearance. Patient was noted to have infiltrates on chest x-ray and was noted to have oxygen saturation of 92% on room air initially. Emergency department doctor discussed the case with patient's PCP who was recommended that patient be admitted at the hospital if hypoxic or plan be made to transfer patient to a [facility] facility from the ED. Because he oxygen saturation on room air dropped to 87% on ambulation a decision was made to admit patient to the hospital. [facility] Medical History CHF (congestive heart failure) Cognitive communication deficit Generalized anxiety disorder GERD (gastroesophageal reflux disease) Inflammatory polyneuropathy Insomnia Major depressive disorder Muscle weakness (generalized) OCD (obsessive compulsive disorder) Peripheral vascular disease Schizophrenia Tachycardia Type II diabetes mellitus Unspecified mood [affective] disorder Vascular dementia Vitamin D deficiency Home Medications sennosides 8.6 mg-docusate sodium 50 mg tablet 2 ea PO DAILY CONSTIPATION 07/25/19 [History Last Taken 07/02/22] fluvoxamine 100 mg capsule,extended release 24 hr 100 mg PO QHS DEPRESSION 01/14/22 [History Last Taken 07/01/22] furosemide 20 mg tablet (Lasix) 20 mg PO DAILY FLUID 01/14/22 [History Last Taken 07/02/22] lamotrigine 150 mg tablet 150 mg PO BID MOOD 01/14/22 [History Last Taken 07/02/22] metoprolol tartrate 25 mg tablet 12.5 mg PO BID BLOOD PRESSURE 01/14/22 [History Last Taken 07/02/22] olanzapine 2.5 mg tablet (Zyprexa) 2.5 mg PO DAILY SCHIZOPHRENIA 01/14/22 [History Last Taken 07/02/22] clonazepam 1 mg tablet 1 mg PO QHS ANXIETY 03/25/22 [History Last Taken 07/01/22] alendronate 35 mg tablet 35 mg PO TH OSTEOPOROSIS 07/02/22 [History Last Taken 06/27/22] calcium carbonate 600 mg-vitamin D3 5 mcg (200 unit) tablet (Calcium 600 + D(3)) 1 tab PO DAILY supplement 07/02/22 [History Last Taken 07/02/22] clonazepam 0.5 mg tablet 0.5 mg PO DAILY ANXIETY 07/02/22 [History Last Taken 07/02/22] clonazepam 0.5 mg tablet 0.5 mg PO Q24H PRN ANXIETY/RESTLESSNESS 07/02/22 [History Last Taken 06/29/22] divalproex 125 mg tablet,delayed release 125 mg PO BID MOOD 07/02/22 [History Last Taken 07/02/22] haloperidol 1 mg tablet 1 mg PO BID SCHIZOPHRENIA 07/02/22 [History Last Taken 07/02/22] haloperidol 1 mg tablet 1.5 mg PO QHS SCHIZOPHRENIA 07/02/22 [History Last Taken 07/01/22] losartan 25 mg tablet 25 mg PO DAILY HEART 07/02/22 [History Last Taken 07/02/22] mirtazapine 7.5 mg tablet 7.5 mg PO QHS DEPRESSION 07/02/22 [History Last Taken 07/01/22] olanzapine 20 mg tablet 20 mg PO QHS SCHIZOPHRENIA 07/02/22 [History Last Taken 07/01/22] oxycodone 5 mg tablet 5 mg PO Q4H PRN PAIN/SHORTNESS OF BREATH 07/02/22 [History Last Taken 07/02/22] Allergy/AdvReac Type Severity Reaction Status Date / Time ceftriaxone [From Rocephin] Allergy Anaphylaxis Verified 07/02/22 16:49 Cephalosporins Allergy Unknown Verified 07/02/22 16:49 procaine [From Novocain] Allergy Unknown Verified 07/02/22 16:49 Family History unable to obtain unable to obtain (Cognitive communication deficit) Surgical History unable to obtain unable to obtain (Cognitive communication deficit) Social History Smoking Status: Never smoker ROS Review of Systems ROS Unobtainable: due to mental condition Vital Signs Vital Signs Vital Signs: 07/02/22 16:41 Temperature 97.6 F L Temperature Source Temporal Pulse Rate 90 Respiratory Rate 16 Blood Pressure 133/89 H Blood Pressure Mean 103 Pulse Ox 92 Oxygen Delivery Method Room Air Weight Weight: 84.822 kg Body Mass Index (BMI) 34.2 Physical Exam Narrative Physical exam: General: Well-nourished, well-developed. Head: Normocephalic, atraumatic, no tenderness Eyes: Vision is grossly intact. EOMI ENT: Edentulous, moist mucous membranes, no rhinorrhea Neck: Nontender, full range of motion, no spinal tenderness, deformities, step-off CVS: Regular rate and rhythm. S1-S2 present. No murmur, gallop or rub. Respiratory : clear to auscultation bilaterally, chest wall nontender, no wheezing Abdomen: Soft, nontender, nondistended, normal bowel sounds, no masses : Deferred Back: Nontender, no CVA tenderness, no midline spinal tenderness, deformities, step-offs Extremities: Nontender full range of motion, no trauma Skin: Normal color, no trauma, abrasions Neuro: Alert, Confused; cranial nerves II through XII grossly intact. Psychiatry: Smiling; Not anxious. Results Lab / Micro Data Result Diagrams: 07/02/22 17:18 07/02/22 17:18 Labs: Laboratory Results - last 24 hr 07/02/22 17:18: WBC 6.3, RBC 4.24, Hgb 12.9, Hct 42.6, MCV 100.5 H, MCH 30.4, MCHC 30.3 L, RDW Std Deviation 55.9 H, RDW Coeff of Kelechi 15.0 H, Plt Count 260, MPV 9.9, Immature Gran % (Auto) 0.300, Neut % (Auto) 62.6, Lymph % (Auto) 27.0, [place] % (Auto) 8.8, Eos % (Auto) 0.2, Baso % (Auto) 1.1 H, Absolute Neuts (auto) 3.9, Absolute Lymphs (auto) 1.69, Nucleated RBC % 0 07/02/22 17:18: Sodium 141, Potassium 4.1, Chloride 105, Carbon Dioxide 30.0, Anion Gap 6, BUN 22 H, Creatinine 1.57 H, Estim Creat Clear Calc 28.25, Est GFR (MDRD) Af Amer 43 L, Est GFR (MDRD) Non-Af 35 L, BUN/Creatinine Ratio 14.0, Glucose 112 H, Calcium 9.6, Total Bilirubin 0.30, AST 16, ALT 22, Alkaline Phosphatase 114, Total Protein 7.6, Albumin 3.6, Globulin 4.0, Albumin/Globulin Ratio 0.9 07/02/22 17:18: Ethyl Alcohol < 3.0 Micro: Microbiology 07/02/22 17:18 Nasal Secretion SARS-CoV-2 Antigen (Rapid) - Final Radiology Impression Chest X-Ray 07/02/22 17:25 IMPRESSION: Focal right lower lobe pneumonia. Electronically Signed: Grant Fishman MD at 18:00 EST , Assessment & Plan Assessment/Plan (1) Pneumonia: (2) Schizophrenia: PLAN: Plan Pneumonia Gram-positive, gram-negative CBC showed normal white count with no bandemia. Patient with anaphylaxis to ceftriaxone. Of note patient is on many psych medication and that can cause QTC prolongation. Patient started on vancomycin and aztreonam at the emergency department and continued. Strep pneumoniae and Legionella urine antigen ordered. Insulin spirometer ordered. Oxygen supplementation as necessary. Acute on chronic psychosis Check a TSH. Follow UA ordered at the ED. Treat medical condition. Case management consult for disposition Home psychotropic medications continued. Hypertension Blood pressure is not within goal Home blood pressure medication continued. Trend blood pressure and adjust blood pressure medications. CKD stage IIIb Stable. DVT prophylaxis Subcutaneous Lovenox ordered. Charges/Coding Visit Charges Inpatient E&M: 45264 Init Hosp L3
[2022-07-02] MEDS: 0.9% Saline Lock 10 ML Syringe IV (22:56)
[2022-07-02] MEDS: Divalproex Sodium 125 MG Tablet PO (23:12)
[2022-07-02] MEDS: Haloperidol 1 MG Tablet 1.5 MG PO (23:13)
[2022-07-02] MEDS: Metoprolol Tartrate 25 MG Tablet 12.5 MG PO (23:15)
[2022-07-02] MEDS: fluvoxaMINE Maleate 50 MG Tablet 100 MG PO (23:18)
[2022-07-02] MEDS: clonazePAM 1 MG Tablet PO (23:20)
[2022-07-02] MEDS: Mirtazapine 15 MG Tablet 7.5 MG PO (23:21)
[2022-07-02] MEDS: OLANZapine 10 MG Tablet 20 MG PO (23:22)
[2022-07-02] MEDS: lamoTRIgine 100 MG Tablet 150 MG PO (23:24)
--- NOTE | 2022-07-02 23:36 | PCM.RX.CS ---
Consult Pharmacy has been consulted to manage selected antiobiotic: Vancomycin Type of Consult: New start Suspected Infection: Pneumonia Prior Doses of Antibiotics Received/Current Regimen: Medications Vancomycin HCl (Vancomycin) 1,000 mg in 200 mls @ 200 mls/hr IV Q24H MIGUELITO Discontinued Medications Vancomycin HCl 1,250 mg/ (Sodium Chloride) 275 mls @ 167 mls/hr IV X1 ONE Stop: 07/02/22 21:43 Last Admin: 07/02/22 22:56 Dose: 167 mls/hr Labs: Sodium 141 mmol/L (136-145) 07/02/22 17:18 Potassium 4.1 mmol/L (3.5-5.1) 07/02/22 17:18 Chloride 105 mmol/L (98-107) 07/02/22 17:18 Carbon Dioxide 30.0 mmol/L (21.0-32.0) 07/02/22 17:18 Anion Gap 6 (5-15) 07/02/22 17:18 BUN 22 mg/dL (7-18) H 07/02/22 17:18 Creatinine 1.57 mg/dL (0.55-1.02) H 07/02/22 17:18 Est GFR (MDRD) Af Amer 43 mL/min (>60) L 07/02/22 17:18 Est GFR (MDRD) Non-Af 35 mL/min (>60) L 07/02/22 17:18 BUN/Creatinine Ratio 14.0 RATIO (10-20) 07/02/22 17:18 Glucose 112 mg/dL (74-106) H 07/02/22 17:18 Microbiology: Microbiology 07/02/22 17:18 Nasal Secretion SARS-CoV-2 Antigen (Rapid) - Final Weight used for dosin.9 kg Estimated Creatinine Clearance: 28.3 Goal Trough: 15-20 mcg/mL Pharmacy Plan for Drug Dosing: Pharmacy Service will continue to monitor and adjust dosing as required. Follow-Up Labs: Trough Vancomycin Labs to be done on [date and time ordered]: 07/04/22 @2230
[2022-07-03] VITALS (11 sets, daily range): BP systolic 109–141; BP diastolic 56–86; PULSE 78–109; RESP 16–18; TEMP 36.3–36.7; O2SAT 90–96
[2022-07-03 05:28] LABS: Absolute Lymphocyte Count 2.23 X10^3/uL (0.83-4.51); Absolute Neutrophil Count 3.1 X10^3/uL (2.0-7.7); Basophil# 0.04 X10^3/uL; Basophil% 0.7 % (0-1); Eosinophil# 0.06 X10^3/uL; Hematocrit 40.1 % (37-47); Hemoglobin 12.3 g/dL (12.0-15.0); Lymphocyte # 2.23 X10^3/ul (0.83-4.51); Lymphocyte % 37.1 % (19-41); Mean Corp Hgb Conc 30.7 g/dL (32-36); Mean Corpuscular Hgb 30.5 pg (27.0-32.0); Mean Corpuscular Volume 99.5 fL (81-99); Mean Platelet Vol. 10.1 fl (6.2-12.0); NRBC Flagged by Analyzer 0 % (0-5); Neutrophil # 3.06 X10^3/uL (2.7-7.7); Neutrophil % 50.9 % (47-70); Platelet Count 240 K/mm3 (150-450); RBC Distribution Width CV 14.9 % (11.6-14.6); RBC Distribution Width SD 54.4 fl (35.1-43.9); Red Blood Count 4.03 M/mm3 (4.2-5.4)
[2022-07-03] MEDS: Haloperidol 1 MG Tablet PO ×2 (05:51→13:19)
[2022-07-03 06:00] LABS: Anion Gap 6 (5-15); BUN 19 mg/dL (7-18); BUN/Creat Ratio 14.6 RATIO (10-20); Calcium,Total 8.7 mg/dL (8.5-10.1); Chloride 108 mmol/L (98-107); EST Glomerular Filtration Rate 44 mL/min (>60); Est Glom Filt Rate - Afr Amer 53 mL/min (>60); Estimated Creatinine Clearance 34.12 ml/min; Glucose 106 mg/dL (74-106); Potassium 3.9 mmol/L (3.5-5.1); Sodium Level 142 mmol/L (136-145); Thyroid Stim Hormone (TSH) 2.89 uIU/mL (0.358-3.74)
[2022-07-03] MEDS: Metoprolol Tartrate 25 MG Tablet 12.5 MG PO ×2 (08:49→20:51)
[2022-07-03] MEDS: lamoTRIgine 100 MG Tablet 150 MG PO ×2 (08:50→20:52)
[2022-07-03] MEDS: Losartan Potassium 25 MG Tablet PO (08:50)
[2022-07-03] MEDS: Calcium Carb/Vitamin D 1 TABLET Tablet PO (08:50)
[2022-07-03] MEDS: Senna/Docusate Sodium 1 Tablet PO (08:50)
[2022-07-03] MEDS: Divalproex Sodium 125 MG Tablet PO ×2 (08:50→20:50)
[2022-07-03] MEDS: Enoxaparin 30 MG/0.3 ML Syringe SC (08:51)
[2022-07-03] MEDS: OLANZapine 2.5 MG Tablet PO (08:51)
[2022-07-03] MEDS: Furosemide 20 MG Tablet PO (08:51)
[2022-07-03] MEDS: clonazePAM 0.5 MG Tablet PO ×2 (08:54→17:11)
[2022-07-03 13:17] LABS: Mucous, Urine 0 SEEN /hpf (<or=2+); Red Blood Cells-Urine 0 SEEN /hpf (0-5); Squamous Epithelial Cells - UA 0 SEEN /hpf (5-10)
[2022-07-03 13:18] LABS: Color, Urine Yellow (Yellow); Glucose, Dipstick Normal (Normal); Ketone-Dipstick Negative (Negative); Leukocyte Esterase-Dipstick 500 /ul (Negative); Nitrite-Dipstick Positive (Negative); Occult Blood-Urine 10 /ul (Negative); Protein-Dipstick Negative (Negative); Urine Bilirubin Dipstick Negative (Negative); Urine Clarity Sl. Cloudy (Clear); Urine Urobilinogen Normal (Normal)
[2022-07-03 13:32] LABS: Amphetamine Urine VISTA NEGATIVE (<1000 ng/mL); Barbiturate Urine VISTA NEGATIVE (< 200 ng/mL); Benzodiazepine Urine VISTA NEGATIVE (< 200 ng/mL); Cocaine Urine VISTA NEGATIVE (< 300 ng/mL); Ecstacy Urine VISTA NEGATIVE (< 500 ng/mL); Methadone Urine VISTA NEGATIVE (< 300 ng/mL); PCP Urine VISTA NEGATIVE (< 25 ng/mL); THC Urine VISTA NEGATIVE (< 50 ng/mL); Vista UDS pH Range 6
[2022-07-03 13:33] LABS: Bacteria 3+ /hpf (None Seen); White Blood Cells 25-50 SEEN /hpf (0-5)
--- NOTE | 2022-07-03 13:36 | PN.HOSP_ITS ---
Subjective Subjective Patient seen and examined. She was alert but confused and could not really answer questions. She kept asking for was her heart. She appeared to be hemodynamically stable and was on room air. Review of systems otherwise negative. Objective Data Objective Data Vital Signs: Vital Signs Temp Pulse Resp BP Pulse Ox O2 Del Method O2 Flow Rate 97.6 F L 86 18 123/83 H 96 Room Air 2 07/03/22 08:45 07/03/22 08:49 07/03/22 08:45 07/03/22 08:49 07/03/22 08:45 07/03/22 08:45 07/03/22 08:27 Oxygen Flow Rate (L/min) 2 Oxygen Delivery Method Room Air Weight: 178 lb 5.663 oz Body Mass Index (BMI) 32.5 Intake & Output: Intake and Output for Last 24 Hours 07/01/22 07/02/22 07/03/22 23:59 23:59 23:59 Intake Total 100 / 100 445 / 445 Balance 100 / 100 445 / 445 Lab / Micro Data Result Diagrams: 07/03/22 04:29 07/03/22 04:29 Labs: Laboratory Results - last 24 hr 07/02/22 13:10: Urine Opiates Screen NEGATIVE, Urine Methadone Screen NEGATIVE, Ur Barbiturates Screen NEGATIVE, Ur Phencyclidine Scrn NEGATIVE, Ur Amphetamines Screen NEGATIVE, MDMA (Ecstasy) Screen NEGATIVE, U Benzodiazepines Scrn NEGATIVE, Urine Cocaine Screen NEGATIVE, U Cannabinoids Screen NEGATIVE, Ur Drug Screen Comment 07/02/22 13:10: Urine Color Yellow, Urine Clarity Sl. Cloudy, Urine pH 7.0, Ur Specific [place] 1.010, Urine Protein Negative, Urine Glucose (UA) Normal, Urine Ketones Negative, Urine Occult Blood 10 H, Urine Nitrite Positive H, Urine Bilirubin Negative, Urine Urobilinogen Normal, Ur Leukocyte Esterase 500 H, Urine RBC 0 SEEN, Urine WBC 25-50 SEEN, Ur Squamous Epith Cells 0 SEEN, Urine Bacteria 3+, Urine Mucus 0 SEEN 07/02/22 17:18: WBC 6.3, RBC 4.24, Hgb 12.9, Hct 42.6, MCV 100.5 H, MCH 30.4, MCHC 30.3 L, RDW Std Deviation 55.9 H, RDW Coeff of Kelechi 15.0 H, Plt Count 260, MPV 9.9, Immature Gran % (Auto) 0.300, Neut % (Auto) 62.6, Lymph % (Auto) 27.0, [place] % (Auto) 8.8, Eos % (Auto) 0.2, Baso % (Auto) 1.1 H, Absolute Neuts (auto) 3.9, Absolute Lymphs (auto) 1.69, Nucleated RBC % 0 07/02/22 17:18: Sodium 141, Potassium 4.1, Chloride 105, Carbon Dioxide 30.0, Anion Gap 6, BUN 22 H, Creatinine 1.57 H, Estim Creat Clear Calc 28.25, Est GFR (MDRD) Af Amer 43 L, Est GFR (MDRD) Non-Af 35 L, BUN/Creatinine Ratio 14.0, Glucose 112 H, Calcium 9.6, Total Bilirubin 0.30, AST 16, ALT 22, Alkaline Phosphatase 114, Total Protein 7.6, Albumin 3.6, Globulin 4.0, Albumin/Globulin Ratio 0.9 07/02/22 17:18: Ethyl Alcohol < 3.0 07/03/22 04:29: WBC 6.0, RBC 4.03 L, Hgb 12.3, Hct 40.1, MCV 99.5 H, MCH 30.5, MCHC 30.7 L, RDW Std Deviation 54.4 H, RDW Coeff of Kelechi 14.9 H, Plt Count 240, MPV 10.1, Immature Gran % (Auto) 0.300, Neut % (Auto) 50.9, Lymph % (Auto) 37.1, [place] % (Auto) 10.0, Eos % (Auto) 1.0, Baso % (Auto) 0.7, Absolute Neuts (auto) 3.1, Absolute Lymphs (auto) 2.23, Nucleated RBC % 0 07/03/22 04:29: Sodium 142, Potassium 3.9, Chloride 108 H, Carbon Dioxide 28.0, Anion Gap 6, BUN 19 H, Creatinine 1.30 H, Estim Creat Clear Calc 34.12, Est GFR (MDRD) Af Amer 53 L, Est GFR (MDRD) Non-Af 44 L, BUN/Creatinine Ratio 14.6, Glucose 106, Calcium 8.7, TSH 2.89 Micro: Microbiology 07/02/22 17:18 Nasal Secretion SARS-CoV-2 Antigen (Rapid) - Final Radiography Diagnostic Testing: Radiology Impression Chest X-Ray 07/02/22 17:25 IMPRESSION: Focal right lower lobe pneumonia. Electronically Signed: Grant Fishman MD at 18:00 EST , Rhythm Strip Rhythm Strip: Sinus Rhythm Rate: 83 Ectopy: None Physical Exam Const alert and no apparent distress Constitutional Narrative: confused HEENT head/scalp atraumatic, moist oral mucous membranes and oropharynx normal Head and Scalp: normocephalic Mouth: oral and palatal mucosa normal Eyes PERRL and EOMs intact bilaterally Neck no lymphadenopathy and supple Resp Resp Narrative: mildly diminished breath sounds bibasally, no wheezes or crackles. On room air. Cardio regular rate, regular rhythm, S1 normal heart sound, S2 normal heart sound and no murmurs GI normal to inspection, nondistended, normoactive bowel sounds, soft to palpation and non-tender Extremity normal to inspection, full ROM and no clubbing, cyanosis or edema Neuro CN's II-XII intact bilaterally, moves all extremities and no focal motor deficits Neuro Narrative: confused Psych affect normal Assessment & Plan Assessment/Plan (1) RLL pneumonia: (2) Pneumonia: PLAN: Plan #Hypoxia due to Community acquired pneumonia * on IV vancomycin and aztreonam * urine for strep and legionella * sputum and blood cultures pending * titrate oxygen to maintain sats >90% * breathing treatment with bronchodilators * #Hypertension * continue current BP meds- metoprolol and losartan * #Acute psychotic episode in the setting of schizophrenia * on haldol prn and olanzapine * #Seizure disorder: on lamotrigine DVT Prophylaxis: lovenox Charges/Coding Visit Charges Inpatient E&M: 36149 Subs Hosp L2
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
[2022-07-03] MEDS: clonazePAM 1 MG Tablet PO (20:50)
[2022-07-03] MEDS: Haloperidol 1 MG Tablet 1.5 MG PO (20:51)
[2022-07-03] MEDS: OLANZapine 10 MG Tablet 20 MG PO (20:53)
[2022-07-03] MEDS: Mirtazapine 15 MG Tablet 7.5 MG PO (20:54)
[2022-07-03] MEDS: fluvoxaMINE Maleate 50 MG Tablet 100 MG PO (20:54)
[2022-07-03] MEDS: 0.9% Saline Lock 10 ML Syringe IV (21:09)
[2022-07-03] MEDS: Vancomycin IV 1,000 MG/200 ML BAG 200 MG IV (22:30)
[2022-07-04] VITALS (11 sets, daily range): BP systolic 121–146; BP diastolic 74–99; PULSE 76–110; RESP 16–18; TEMP 36–36.8; O2SAT 92–94
[2022-07-04] MEDS: Haloperidol 1 MG Tablet PO ×2 (05:29→15:50)
[2022-07-04] MEDS: Alendronate Sodium 70 MG Tablet 35 MG PO (05:29)
[2022-07-04] MEDS: 0.9% Saline Lock 10 ML Syringe IV (05:36)
[2022-07-04 06:53] LABS: Absolute Neutrophil Count 3.2 X10^3/uL (2.0-7.7); Basophil# 0.06 X10^3/uL; Basophil% 1.1 % (0-1); Eosinophil# 0.04 X10^3/uL; Eosinophils% 0.7 % (0-5); Hematocrit 42.6 % (37-47); Hemoglobin 13.1 g/dL (12.0-15.0); Lymphocyte % 29.4 % (19-41); Mean Corp Hgb Conc 30.8 g/dL (32-36); Mean Corpuscular Hgb 30.5 pg (27.0-32.0); Mean Corpuscular Volume 99.1 fL (81-99); Mean Platelet Vol. 10.2 fl (6.2-12.0); Monocyte# 0.56 X10^3/uL; Monocyte% 10.3 % (0-10); NRBC Flagged by Analyzer 0 % (0-5); Neutrophil # 3.17 X10^3/uL (2.7-7.7); Neutrophil % 58.1 % (47-70); Platelet Count 235 K/mm3 (150-450); RBC Distribution Width CV 14.7 % (11.6-14.6); RBC Distribution Width SD 53.5 fl (35.1-43.9); White Blood Count 5.5 K/mm3 (4.4-11.0)
[2022-07-04 07:12] LABS: Anion Gap 4 (5-15); BUN 20 mg/dL (7-18); Calcium,Total 9.3 mg/dL (8.5-10.1); Chloride 104 mmol/L (98-107); Creatinine, Serum 1.33 mg/dL (0.55-1.02); EST Glomerular Filtration Rate 43 mL/min (>60); Est Glom Filt Rate - Afr Amer 51 mL/min (>60); Estimated Creatinine Clearance 33.35 ml/min; Glucose 96 mg/dL (74-106); Potassium 3.9 mmol/L (3.5-5.1); Sodium Level 140 mmol/L (136-145)
[2022-07-04] MEDS: Losartan Potassium 25 MG Tablet PO (08:29)
[2022-07-04] MEDS: Calcium Carb/Vitamin D 1 TABLET Tablet PO (08:29)
[2022-07-04] MEDS: Metoprolol Tartrate 25 MG Tablet 12.5 MG PO ×2 (08:30→21:03)
[2022-07-04] MEDS: Divalproex Sodium 125 MG Tablet PO ×2 (08:30→23:17)
[2022-07-04] MEDS: Senna/Docusate Sodium 1 Tablet PO (08:30)
[2022-07-04] MEDS: OLANZapine 2.5 MG Tablet PO (08:30)
[2022-07-04] MEDS: lamoTRIgine 100 MG Tablet 150 MG PO ×2 (08:31→23:17)
[2022-07-04] MEDS: Furosemide 20 MG Tablet PO (08:31)
[2022-07-04] MEDS: Enoxaparin 30 MG/0.3 ML Syringe SC (08:33)
[2022-07-04] MEDS: clonazePAM 0.5 MG Tablet PO ×2 (08:33→17:54)
--- NOTE | 2022-07-04 10:33 | CM.ED ---
Addendum entered by Kathryn Case 07/04/22 10:52: Due to patient's behavior deteriorating, when medically getting better this comic book writer feels that patient would benefit from inpatient psych placement. Plan: Inpatient psych for stabilization Original Note: TAY Note PCU social work specialist advised that patient is throwing food and trying to get out of bed alot and restless. Thus, it appears that patient would benefit from inpatient psych facility for medication adjustment and stabilization. T[facility] and left voice mail message for social work specialist and DON requesting call back. TAY called Olga jimenez [facility]. TAY faxed referral documentation for their review. Kathryn CHAVEZ
--- NOTE | 2022-07-04 12:13 | CASEMGMT ---
SW called [facility] and spoke with Alesha. Alesha said patient has had 4 COVID vaccines which includes 2 boosters. First vaccine was: 08-16-20 second was: 09-06-20 1st booster: 05-15-21 and second booster: 12-12-21 all were Pfizer. Patient's last bowel movement appears to have been at [facility] 07-01-22. Liliane Martinez INSIGHTS ANALYST [place]
--- NOTE | 2022-07-04 12:38 | PN.HOSP_ITS ---
Subjective Subjective Patient seen and examined. She was quite confused today and was trying to get out of bed and had poured her milk over her. Unable to do review of systems due to her confusion. She has remained hemodynamically stable. Objective Data Objective Data Vital Signs: Vital Signs Temp Pulse Resp BP Pulse Ox O2 Del Method O2 Flow Rate 97.8 F 110 H 18 121/84 H 94 Room Air 2 07/04/22 08:45 07/04/22 08:45 07/04/22 08:45 07/04/22 08:45 07/04/22 08:45 07/04/22 08:45 07/04/22 07:36 Oxygen Flow Rate (L/min) 2 Oxygen Delivery Method Room Air Weight: 178 lb 5.663 oz Body Mass Index (BMI) 32.5 Intake & Output: Intake and Output for Last 24 Hours 07/02/22 07/03/22 07/04/22 23:59 23:59 23:59 Intake Total 100 / 100 1225 / 1225 410 / 410 Balance 100 / 100 1225 / 1225 410 / 410 Lab / Micro Data Result Diagrams: 07/04/22 05:45 07/04/22 05:45 Labs: Laboratory Results - last 24 hr 07/02/22 13:10: Urine Opiates Screen NEGATIVE, Urine Methadone Screen NEGATIVE, Ur Barbiturates Screen NEGATIVE, Ur Phencyclidine Scrn NEGATIVE, Ur Amphetamines Screen NEGATIVE, MDMA (Ecstasy) Screen NEGATIVE, U Benzodiazepines Scrn NEGATIVE, Urine Cocaine Screen NEGATIVE, U Cannabinoids Screen NEGATIVE, Ur Drug Screen Comment 07/02/22 13:10: Urine Color Yellow, Urine Clarity Sl. Cloudy, Urine pH 7.0, Ur Specific [place] 1.010, Urine Protein Negative, Urine Glucose (UA) Normal, Urine Ketones Negative, Urine Occult Blood 10 H, Urine Nitrite Positive H, Urine Bilirubin Negative, Urine Urobilinogen Normal, Ur Leukocyte Esterase 500 H, Urine RBC 0 SEEN, Urine WBC 25-50 SEEN, Ur Squamous Epith Cells 0 SEEN, Urine Bacteria 3+, Urine Mucus 0 SEEN 07/04/22 05:45: WBC 5.5, RBC 4.30, Hgb 13.1, Hct 42.6, MCV 99.1 H, MCH 30.5, MCHC 30.8 L, RDW Std Deviation 53.5 H, RDW Coeff of Kelechi 14.7 H, Plt Count 235, MPV 10.2, Immature Gran % (Auto) 0.400, Neut % (Auto) 58.1, Lymph % (Auto) 29.4, [place] % (Auto) 10.3 H, Eos % (Auto) 0.7, Baso % (Auto) 1.1 H, Absolute Neuts (au to) 3.2, Absolute Lymphs (auto) 1.60, Nucleated RBC % 0 07/04/22 05:45: Sodium 140, Potassium 3.9, Chloride 104, Carbon Dioxide 32.0, Anion Gap 4 L, BUN 20 H, Creatinine 1.33 H, Estim Creat Clear Calc 33.35, Est GFR (MDRD) Af Amer 51 L, Est GFR (MDRD) Non-Af 43 L, BUN/Creatinine Ratio 15.0, Glucose 96, Calcium 9.3 Micro: Microbiology 07/03/22 13:10 Urine, Clean Catch Legionella Antigen - Final 07/03/22 13:10 Urine, Clean Catch Streptococcus pneumoniae Antigen (M - Final 07/02/22 17:18 Nasal Secretion SARS-CoV-2 Antigen (Rapid) - Final Rhythm Strip Rhythm Strip: Sinus Rhythm Rate: 83 Ectopy: None Physical Exam Const alert and no apparent distress Constitutional Narrative: confused HEENT head/scalp atraumatic, moist oral mucous membranes and oropharynx normal Eyes PERRL and EOMs intact bilaterally Neck no lymphadenopathy and supple Resp Resp Narrative: mildly diminished breath sounds bibasally, no wheezes or crackles. On room air. Cardio regular rate, regular rhythm, S1 normal heart sound, S2 normal heart sound and no murmurs GI normal to inspection, nondistended, normoactive bowel sounds, soft to palpation and non-tender Extremity normal to inspection, full ROM and no clubbing, cyanosis or edema Neuro CN's II-XII intact bilaterally, moves all extremities and no focal motor deficits Neuro Narrative: confused Psych affect normal Assessment & Plan Assessment/Plan (1) RLL pneumonia: (2) Pneumonia: PLAN: Plan #Hypoxia due to Community acquired pneumonia * on IV vancomycin and aztreonam * urine for strep and legionella * sputum and blood cultures pending * titrate oxygen to maintain sats >90% * breathing treatment with bronchodilators * #Hypertension * on metoprolol and losartan * #Acute psychotic episode in the setting of schizophrenia * on haldol prn and olanzapine * quite confused today. * #Seizure disorder: on lamotrigine DVT Prophylaxis: lovenox Disposition: medically stable for discharge to [facility] facility Charges/Coding Visit Charges Inpatient E&M: 00017 Subs Hosp L2
--- NOTE | 2022-07-04 15:47 | DS.PCM_ITS ---
Providers Date of Admission: 07/02/22 Date of Discharge: 07/04/22 Primary Care Physician: Dr. uNra Ambriz MD Reason For Visit: PNEUMONIA Diagnosis Discharge Diagnosis (1) RLL pneumonia: Status: Acute Code(s): J18.9 - Pneumonia, unspecified organism (2) Pneumonia: Status: Acute Code(s): J18.9 - Pneumonia, unspecified organism Plan #Hypoxia due to Community acquired pneumonia * on IV vancomycin and aztreonam * urine for strep and legionella * sputum and blood cultures pending * titrate oxygen to maintain sats >90% * breathing treatment with bronchodilators * #Hypertension * on metoprolol and losartan * #Acute psychotic episode in the setting of schizophrenia * on haldol prn and olanzapine * quite confused today. * #Seizure disorder: on lamotrigine DVT Prophylaxis: lovenox Disposition: medically stable for discharge to [facility] facility Medications at Discharge Home Medications sennosides 8.6 mg-docusate sodium 50 mg tablet 2 ea PO DAILY CONSTIPATION 07/25/19 fluvoxamine 100 mg capsule,extended release 24 hr 100 mg PO QHS DEPRESSION 01/14/22 furosemide 20 mg tablet (Lasix) 20 mg PO DAILY FLUID 01/14/22 lamotrigine 150 mg tablet 150 mg PO BID MOOD 01/14/22 metoprolol tartrate 25 mg tablet 12.5 mg PO BID BLOOD PRESSURE 01/14/22 olanzapine 2.5 mg tablet (Zyprexa) 2.5 mg PO DAILY SCHIZOPHRENIA 01/14/22 clonazepam 1 mg tablet 1 mg PO QHS ANXIETY 03/25/22 alendronate 35 mg tablet 35 mg PO TH OSTEOPOROSIS 07/02/22 calcium carbonate 600 mg-vitamin D3 5 mcg (200 unit) tablet (Calcium 600 + D(3)) 1 tab PO DAILY supplement 07/02/22 clonazepam 0.5 mg tablet 0.5 mg PO DAILY ANXIETY 07/02/22 clonazepam 0.5 mg tablet 0.5 mg PO Q24H PRN ANXIETY/RESTLESSNESS 07/02/22 divalproex 125 mg tablet,delayed release 125 mg PO BID MOOD 07/02/22 haloperidol 1 mg tablet 1 mg PO BID SCHIZOPHRENIA 07/02/22 haloperidol 1 mg tablet 1.5 mg PO QHS SCHIZOPHRENIA 07/02/22 losartan 25 mg tablet 25 mg PO DAILY HEART 07/02/22 mirtazapine 7.5 mg tablet 7.5 mg PO QHS DEPRESSION 07/02/22 olanzapine 20 mg tablet 20 mg PO QHS SCHIZOPHRENIA 07/02/22 oxycodone 5 mg tablet 5 mg PO Q4H PRN PAIN/SHORTNESS OF BREATH 07/02/22 levofloxacin 750 mg tablet 750 mg PO DAILY #5 tabs 07/04/22 Hospital Course Operations None Procedures None Summary of Care Provided Minutes Spent on Discharge: 45 Hospital Course: Patient is a 67 y/o with a PMh as outlined who was admitted via the ED with a complaint of increasing agitation above her baseline. Her fpc had been trying to get her into a geripsych facility, and she was brought in to the ED for medical clearance. On arrival in the ED she was found to be hypoxic with a saturation going down to 87% with ambulation. Chest x-ray showed evidence of right lower lobe pneumonia. She was therefore admitted and managed for hypoxia due to community-acquired pneumonia. She was started on IV vancomycin and aztreonam. Subsequently felt better and hypoxia resolved. However she remained confused. She was therefore pink slipped and transferred to a psychiatric [facility] facility on 07/04/2022. She was discharged on p.o. levofloxacin 500 and current daily for 5 days to complete treatment for pneumonia. Patient seen and examined prior to discharge. She felt much better though still remained confused and was trying to get out of bed. Unable to do review of systems due to her confusion. Physical Exam Const alert and no apparent distress Constitutional Narrative: confused General Appearance: cooperative and comfortable Orientation / Consciousness: awake Exam Limitations: altered mental status HEENT head/scalp atraumatic, moist oral mucous membranes and oropharynx normal Eyes PERRL and EOMs intact bilaterally Neck no lymphadenopathy and supple Resp Resp Narrative: mildly diminished breath sounds bibasally, no wheezes or crackles. On room air. Cardio regular rate, regular rhythm, S1 normal heart sound, S2 normal heart sound and no murmurs GI normal to inspection, nondistended, normoactive bowel sounds, soft to palpation and non-tender Extremity normal to inspection, full ROM and no clubbing, cyanosis or edema Skin no rashes or lesions noted Neuro CN's II-XII intact bilaterally, moves all extremities and no focal motor deficits Neuro Narrative: confused Psych affect normal Weight / BMI Weight Weight: 178 lb 5.663 oz Body Mass Index (BMI) 32.5 ABG / Lab / Microbiology Data Result Diagrams: 07/04/22 05:45 07/04/22 05:45 Laboratory: Laboratory Results - last 24 hr 07/04/22 05:45: WBC 5.5, RBC 4.30, Hgb 13.1, Hct 42.6, MCV 99.1 H, MCH 30.5, MCHC 30.8 L, RDW Std Deviation 53.5 H, RDW Coeff of Kelechi 14.7 H, Plt Count 235, MPV 10.2, Immature Gran % (Auto) 0.400, Neut % (Auto) 58.1, Lymph % (Auto) 29.4, [place] % (Auto) 10.3 H, Eos % (Auto) 0.7, Baso % (Auto) 1.1 H, Absolute Neuts (auto) 3.2, Absolute Lymphs (auto) 1.60, Nucleated RBC % 0 07/04/22 05:45: Sodium 140, Potassium 3.9, Chloride 104, Carbon Dioxide 32.0, Anion Gap 4 L, BUN 20 H, Creatinine 1.33 H, Estim Creat Clear Calc 33.35, Est GFR (MDRD) Af Amer 51 L, Est GFR (MDRD) Non-Af 43 L, BUN/Creatinine Ratio 15.0, Glucose 96, Calcium 9.3 Microbiology: Microbiology 07/04/22 13:45 Nasal Secretion SARS-CoV-2 Antigen (Rapid) - Final 07/03/22 13:10 Urine, Clean Catch Legionella Antigen - Final 07/03/22 13:10 Urine, Clean Catch Streptococcus pneumoniae Antigen (M - Final 07/02/22 17:18 Nasal Secretion SARS-CoV-2 Antigen (Rapid) - Final D/C Instructions Discharge Diet: Low fat / Low cholesterol Discharge Activity: Return to Normal Activity Weight Bearing Status: Weight bearing as tolerated Call your doctor if you observe: Fever of 101 or Higher, Shortness of breath, Dizziness, Swelling in the ankles and Chest pain Meaningful Use Info Meaningful Use Diagnoses (Choose all that apply): None applicable Discharge Plan Admission Admit Date/Time: 07/02/22 19:41 Primary Reason for Your Visit: pneumonia Attending Provider: Hemalatha Shankar Primary Care Provider: Nura Ambriz Chi Consulting Providers: Jamaal Vasquez Instructions Patient Instructions: Pneumonia Discharge Orders/Prescriptions Prescriptions: New levofloxacin 750 mg tablet 750 mg PO DAILY Qty: 5 0RF Continued fluvoxamine 100 mg capsule,extended release 24hr 100 mg PO QHS lamotrigine 150 mg tablet 150 mg PO BID furosemide [Lasix] 20 mg tablet 20 mg PO DAILY metoprolol tartrate 25 mg tablet 12.5 mg PO BID olanzapine [Zyprexa] 2.5 mg tablet 2.5 mg PO DAILY clonazepam 1 mg tablet 1 mg PO QHS Label Comments: anxiety sennosides-docusate sodium 1 EACH tablet 2 ea PO DAILY clonazepam 0.5 mg Tablet 0.5 mg PO DAILY clonazepam 0.5 mg Tablet 0.5 mg PO Q24H PRN (Reason: ANXIETY/RESTLESSNESS) haloperidol 1 mg Tablet 1 mg PO BID haloperidol 1 mg Tablet 1.5 mg PO QHS calcium carbonate-vitamin D3 [Calcium 600 + D(3)] 600 mg-5 mcg (200 unit) Tablet 1 tab PO DAILY alendronate 35 mg Tablet 35 mg PO TH losartan 25 mg Tablet 25 mg PO DAILY divalproex 125 mg Tablet,Delayed Release (Dr/Ec) 125 mg PO BID olanzapine 20 mg Tablet 20 mg PO QHS oxycodone 5 mg Tablet 5 mg PO Q4H PRN (Reason: PAIN/SHORTNESS OF BREATH) mirtazapine 7.5 mg Tablet 7.5 mg PO QHS Referrals / Follow Up: Nura Ambriz Chi, MD [Primary Care Provider] - Disposition Disposition (needs filled in before D/C Order can be placed): Psychiatric Hospital or Unit Charges/Coding Visit Charges Inpatient E&M: 76826 Disch Hosp
--- NOTE | 2022-07-04 16:02 | CASEMGMT ---
TAY faxed progress note indicating patient is medically ready for d/c, pink slip, and transfer form, and COVID test to [facility] [place]. Staff arranged chart picker for 930p. TAY notified TAY Peralta and she will notify the facility. Liliane CARRILLO
--- NOTE | 2022-07-04 16:09 | CASEMGMT ---
DIONNA called [facility] and left message for DIONNA Lopez and MARANDA Flores to call this technical publications writer. DIONNA called Alicia Goode, patient's guardian and advised that as patient was throwing food and restless as well as deterioration of her mental health that this technical publications writer will be looking for inpatient psych placement. Alicia is in agreement with plan for inpatient psych hospitalization. DIONNA called Ca at [facility] ([place], [place]) and spoke to Olga. DIONNA made referral. DIONNA faxed referral information to [facility]. Fax Confirmation received. DIONNA called [facility]. Spoke to Wilfrido. Wilfrido advised that they may have openings tomorrow. DIONNA made referral. DIONNA faxed referral information to [facility] for review. DIONNA called Ela at [facility]. DIONNA made referral to Ela. DIONNA faxed referral information to [facility]. Doinna called [facility]. No outside referrals per staff. DIONNA spoke to [place] Specialist Don Edwards. She had called [facility] for a patient she was working with and they were not taking outside referrals. DIONNA called Mariza at [facility]. No outside referrals. DIONNA called Dutch at [facility]. No geripsych referrals as they do not have staff. DIONNA called [facility] and left message. DIONNA was contacted by Olga at [facility]. [facility] accepted. Needs covid, medication list and guardian consent or pink slip for patient. DIONNA called Alicia Goode. She is not able to sign paperwork today unless necessary but can sign paperwork tomorrow. DIONNA called Olga at [facility] and she said that it was fine for patient to go on a pink slip and then the guardian to follow up with consent on Friday. DIONNA called Alicia Goode. It is fine for patient to go on pink slip but then on Friday Alicia needs to fax the consent paperwork to [facility]. Alicia agreed. DIONNA faxed (and received confirmation fax) the consent paperwork for patient for guardians signature to [facility]. DIONNA [facility]. DIONNA received call from Olga inquiring if patient will be on IV vanc. DIONNA spoke toNakul Momin who stated that it does not appear that patient would go on IV vanc. Advised that patient is being discharged from [facility] at 9:30pm. SW reviewed the discharge instructions. No IV vancyomicin on discharge paperwork. SW called Jessica at [facility] and updated her and MARANDA Flores about placement.Provided them with phone number. They assured this technical publications writer that they do not? ?dump? patients and that patient can return. Plan: Chantel at [facility] ([place], [place]) Cassandra CHAVEZ
--- NOTE | 2022-07-04 18:14 | NURSING ---
Report called to nurse Domingo for pt to be d/c to Shaina at [facility].
[2022-07-04] MEDS: Mirtazapine 15 MG Tablet 7.5 MG PO (21:03)
[2022-07-04] MEDS: Haloperidol 1 MG Tablet 1.5 MG PO (21:04)
[2022-07-04] MEDS: clonazePAM 1 MG Tablet PO (21:12)
--- NOTE | 2022-07-04 21:44 | NURSING ---
transport team called and notified us chart picker will be delayed until 0700. This RN called Jerome, spoke with Cece and updated her about latest chart picker time.
[2022-07-04] MEDS: OLANZapine 10 MG Tablet 20 MG PO (23:17)
[2022-07-04] MEDS: fluvoxaMINE Maleate 50 MG Tablet 100 MG PO (23:18)
[2022-07-04 23:19] LABS: Vancomycin, Trough Level 14.5 ug/mL (5.0-15.0)
[2022-07-05] MEDS: Vancomycin IV 1,000 MG/200 ML BAG 200 MG IV (01:05)
[2022-07-05 02:28] VITALS: BP 126/92; PULSE 71; RESP 15; TEMP 36.8; O2SAT 95
[2022-07-05 04:00] VITALS: BP 126/92; PULSE 71; RESP 15; TEMP 36.8; O2SAT 96
[2022-07-05] MEDS: Haloperidol 1 MG Tablet PO (05:17)
--- NOTE | 2022-07-05 05:25 | PCM.RX.CS ---
Consult Pharmacy has been consulted to manage selected antiobiotic: Vancomycin Type of Consult: Follow-up Labs: Sodium 140 mmol/L (136-145) 07/04/22 05:45 Potassium 3.9 mmol/L (3.5-5.1) 07/04/22 05:45 Chloride 104 mmol/L (98-107) 07/04/22 05:45 Carbon Dioxide 32.0 mmol/L (21.0-32.0) 07/04/22 05:45 Anion Gap 4 (5-15) L 07/04/22 05:45 BUN 20 mg/dL (7-18) H 07/04/22 05:45 Creatinine 1.33 mg/dL (0.55-1.02) H 07/04/22 05:45 Est GFR (MDRD) Af Amer 51 mL/min (>60) L 07/04/22 05:45 Est GFR (MDRD) Non-Af 43 mL/min (>60) L 07/04/22 05:45 BUN/Creatinine Ratio 15.0 RATIO (10-20) 07/04/22 05:45 Glucose 96 mg/dL (74-106) 07/04/22 05:45 Vancomycin Trough 14.5 ug/mL (5.0-15.0) 07/04/22 22:23 Microbiology: Microbiology 07/04/22 13:45 Nasal Secretion SARS-CoV-2 Antigen (Rapid) - Final 07/03/22 13:10 Urine, Clean Catch Legionella Antigen - Final 07/03/22 13:10 Urine, Clean Catch Streptococcus pneumoniae Antigen (M - Final 07/02/22 17:18 Nasal Secretion SARS-CoV-2 Antigen (Rapid) - Final Goal Trough: 15-20 mcg/mL Pharmacy Plan for Drug Dosing: Pharmacy Service will continue to monitor and adjust dosing as required. TROUGH 14.5 @ 24 HRS, NO CHANGES FOLLOW UP TROUGH IN 2 DAYS Follow-Up Labs: Trough Vancomycin Labs to be done on [date and time ordered]: 07/06 @ 8102
[2022-07-05 07:02] LABS: Absolute Lymphocyte Count 2.35 X10^3/uL (0.83-4.51); Absolute Neutrophil Count 3.4 X10^3/uL (2.0-7.7); Basophil# 0.06 X10^3/uL; Basophil% 0.9 % (0-1); Eosinophil# 0.07 X10^3/uL; Eosinophils% 1.1 % (0-5); Hemoglobin 13.2 g/dL (12.0-15.0); Lymphocyte # 2.35 X10^3/ul (0.83-4.51); Lymphocyte % 35.6 % (19-41); Mean Corp Hgb Conc 30.7 g/dL (32-36); Mean Corpuscular Hgb 30.5 pg (27.0-32.0); Mean Corpuscular Volume 99.3 fL (81-99); Mean Platelet Vol. 10.5 fl (6.2-12.0); Monocyte# 0.67 X10^3/uL; Monocyte% 10.2 % (0-10); NRBC Flagged by Analyzer 0 % (0-5); Neutrophil # 3.42 X10^3/uL (2.7-7.7); Neutrophil % 51.7 % (47-70); Platelet Count 232 K/mm3 (150-450); RBC Distribution Width CV 14.9 % (11.6-14.6); RBC Distribution Width SD 53.5 fl (35.1-43.9); Red Blood Count 4.33 M/mm3 (4.2-5.4); White Blood Count 6.6 K/mm3 (4.4-11.0)
[2022-07-05] MEDS: 0.9% Saline Lock 10 ML Syringe IV (07:32)
[2022-07-05 07:48] LABS: Anion Gap 6 (5-15); BUN 22 mg/dL (7-18); BUN/Creat Ratio 14.8 RATIO (10-20); Calcium,Total 9.5 mg/dL (8.5-10.1); Chloride 104 mmol/L (98-107); Creatinine, Serum 1.49 mg/dL (0.55-1.02); EST Glomerular Filtration Rate 37 mL/min (>60); Est Glom Filt Rate - Afr Amer 45 mL/min (>60); Estimated Creatinine Clearance 29.77 ml/min; Glucose 75 mg/dL (74-106); Potassium 3.6 mmol/L (3.5-5.1); Sodium Level 141 mmol/L (136-145)
--- NOTE | 2022-07-05 07:52 | NURSING ---
Updated report called to nurse De Leon at [facility] for pt d/c.
== END 2022-07-05 07:35 | DRG 139 ==
LOC: ED 17:27 → PCU 20:07
PROVIDERS: Admitting Provider Hospitalist; Emergency Provider Emergency Medicine; PCP Family Medicine Geriatric Medicine; Visit Provider Student in an Organized Health Care Education/Training Program
DX: J18.9 Pneumonia, unspecified organism (principal); G61.9 Inflammatory polyneuropathy, unspecified; E11.22 Type 2 diabetes mellitus with diabetic chronic kidney disease; F06.8 Other specified mental disorders due to known physiological condition; I13.0 Hypertensive heart and chronic kidney disease with heart failure and stage 1 through stage 4 chronic kidney disease, or unspecified chronic kidney disease; I50.9 Heart failure, unspecified; F20.9 Schizophrenia, unspecified; N18.32 Chronic kidney disease, stage 3b; G40.909 Epilepsy, unspecified, not intractable, without status epilepticus; K21.9 Gastro-esophageal reflux disease without esophagitis; F41.1 Generalized anxiety disorder; Z79.83 Long term (current) use of bisphosphonates; F42.9 Obsessive-compulsive disorder, unspecified; R09.02 Hypoxemia; Z79.899 Other long term (current) drug therapy
CPT/HCPCS: 36415; 71045; 80048; 80053; 80202; 80307; 81001; 82077; 84443; 85025; 87426; 87449; 87811; 93005; 99285; J7050; A4216; J3490

== ENCOUNTER → 2022-08-06 | Outpatient (REF) | payer MEDICAID, SELFPAY ==
[2022-08-06 09:27] LABS: Hematocrit 40.4 % (37-47); Hemoglobin 12.9 g/dL (12.0-15.0); Mean Corp Hgb Conc 31.9 g/dL (32-36); Mean Corpuscular Hgb 31.6 pg (27.0-32.0); Mean Platelet Vol. 11.4 fl (6.2-12.0); Platelet Count 213 K/mm3 (150-450); RBC Distribution Width CV 13.5 % (11.6-14.6); RBC Distribution Width SD 49.3 fl (35.1-43.9); Red Blood Count 4.08 M/mm3 (4.2-5.4); White Blood Count 6.5 K/mm3 (4.4-11.0)
[2022-08-06 10:44] LABS: Valproic Acid (Depakene) Level 48 ug/mL (50-100)
== END | disposition home or self-care (01) ==
LOC: OLS.WCC 05:00
PROVIDERS: PCP Family Medicine Geriatric Medicine; Visit Provider Family Medicine
DX: Z79.899 Other long term (current) drug therapy (principal)
CPT/HCPCS: 36415; 80164; 85027

== ENCOUNTER → 2022-09-05 | Outpatient (REF) | payer MEDICAID, SELFPAY ==
[2022-09-05 08:49] LABS: Absolute Neutrophil Count 2.3 X10^3/uL (2.0-7.7); Basophil# 0.04 X10^3/uL; Basophil% 0.8 % (0-1); Hematocrit 40.4 % (37-47); Hemoglobin 12.8 g/dL (12.0-15.0); Lymphocyte % 34.1 % (19-41); Mean Corp Hgb Conc 31.7 g/dL (32-36); Mean Corpuscular Hgb 31.1 pg (27.0-32.0); Mean Corpuscular Volume 98.1 fL (81-99); Mean Platelet Vol. 11.3 fl (6.2-12.0); Monocyte# 0.64 X10^3/uL; Monocyte% 12.8 % (0-10); NRBC Flagged by Analyzer 0 % (0-5); Neutrophil % 46.1 % (47-70); Platelet Count 186 K/mm3 (150-450); RBC Distribution Width CV 13.1 % (11.6-14.6); RBC Distribution Width SD 46.5 fl (35.1-43.9); Red Blood Count 4.12 M/mm3 (4.2-5.4)
[2022-09-05 09:05] LABS: ALB/GLOB Ratio 0.7 RATIO (0.9-2.4); AST(SGOT) 15 U/L (15-37); Alanine Aminotransfer ALT/SGPT 18 U/L (13-56); Albumin, Serum 2.9 g/dL (3.2-5.0); Alkaline Phosphatase 74 U/L (45-117); Anion Gap 6 (5-15); BUN 27 mg/dL (7-18); BUN/Creat Ratio 23.3 RATIO (10-20); Bilirubin, Direct 0.09 mg/dL (0.00-0.30); Calcium,Total 9.3 mg/dL (8.5-10.1); Chloride 101 mmol/L (98-107); Creatinine, Serum 1.16 mg/dL (0.55-1.02); EST Glomerular Filtration Rate 50 mL/min (>60); Est Glom Filt Rate - Afr Amer 60 mL/min (>60); Glucose 180 mg/dL (74-106); Protein, Total 6.9 g/dL (6.4-8.2); Sodium Level 139 mmol/L (136-145)
[2022-09-05 09:06] LABS: Valproic Acid (Depakene) Level 78 ug/mL (50-100)
== END | disposition home or self-care (01) ==
LOC: OLS.WCC 05:00
PROVIDERS: PCP Family Medicine Geriatric Medicine; Visit Provider Family Medicine
DX: I50.9 Heart failure, unspecified (principal); E11.9 Type 2 diabetes mellitus without complications; Z79.899 Other long term (current) drug therapy
CPT/HCPCS: 36415; 80053; 80164; 82248; 85025

== ENCOUNTER → 2022-09-14 | Outpatient (REF) | payer MEDICAID, SELFPAY ==
[2022-09-14 17:26] LABS: Color, Urine Yellow (Yellow); Glucose, Dipstick Normal (Normal); Ketone-Dipstick 5 mg/dl (Negative); Leukocyte Esterase-Dipstick 500 /ul (Negative); Nitrite-Dipstick Positive (Negative); Occult Blood-Urine Negative /ul (Negative); Protein-Dipstick 15 mg/dl (Negative); Specific Gravity, Urine 1.015 (1.002-1.030); Urine Bilirubin Dipstick Negative (Negative); Urine Clarity Cloudy (Clear); Urine Urobilinogen Normal (Normal); Urine pH 6.5 (5.0 - 8.0)
[2022-09-14 17:28] LABS: Absolute Lymphocyte Count 1.73 X10^3/uL (0.83-4.51); Absolute Neutrophil Count 2.5 X10^3/uL (2.0-7.7); Basophil# 0.05 X10^3/uL; Eosinophil# 0.21 X10^3/uL; Hematocrit 42.2 % (37-47); Lymphocyte # 1.73 X10^3/ul (0.83-4.51); Lymphocyte % 33.1 % (19-41); Mean Corp Hgb Conc 30.8 g/dL (32-36); Mean Corpuscular Hgb 30.9 pg (27.0-32.0); Mean Corpuscular Volume 100.2 fL (81-99); Mean Platelet Vol. 11.1 fl (6.2-12.0); Monocyte# 0.69 X10^3/uL; Monocyte% 13.2 % (0-10); NRBC Flagged by Analyzer 0 % (0-5); Neutrophil # 2.53 X10^3/uL (2.7-7.7); Neutrophil % 48.3 % (47-70); Platelet Count 170 K/mm3 (150-450); RBC Distribution Width CV 12.8 % (11.6-14.6); RBC Distribution Width SD 47.3 fl (35.1-43.9); Red Blood Count 4.21 M/mm3 (4.2-5.4); White Blood Count 5.2 K/mm3 (4.4-11.0)
[2022-09-14 17:36] LABS: Anion Gap 5 (5-15); BUN 20 mg/dL (7-18); BUN/Creat Ratio 16.7 RATIO (10-20); Calcium,Total 8.9 mg/dL (8.5-10.1); Chloride 104 mmol/L (98-107); EST Glomerular Filtration Rate 48 mL/min (>60); Est Glom Filt Rate - Afr Amer 58 mL/min (>60); Glucose 89 mg/dL (74-106); Potassium 3.9 mmol/L (3.5-5.1); Sodium Level 143 mmol/L (136-145)
== END | disposition home or self-care (01) ==
LOC: OLS.WCC 13:00
PROVIDERS: Visit Provider Family Medicine
DX: J44.9 Chronic obstructive pulmonary disease, unspecified (principal); N39.0 Urinary tract infection, site not specified; E11.9 Type 2 diabetes mellitus without complications; R53.83 Other fatigue
CPT/HCPCS: 80048; 81002; 85025; 87077; 87086; 87088; 87186

== ENCOUNTER → 2022-09-26 | Outpatient (REF) | payer MEDICAID, SELFPAY | END | disposition home or self-care (01) | LOC: OLS.WCC 05:00 | PROVIDERS: PCP Family Medicine Geriatric Medicine; Visit Provider Family Medicine | DX: E11.9 Type 2 diabetes mellitus without complications (principal); E55.9 Vitamin D deficiency, unspecified; Z79.899 Other long term (current) drug therapy | CPT/HCPCS: 36415; 82306; 83036 ==

== ENCOUNTER → 2022-09-26 | Outpatient (REF) | payer MEDICAID, SELFPAY ==
[2022-09-26 09:00] LABS: Vitamin D,25 Hydroxy 40.6 ng/mL
[2022-09-26 09:02] LABS: Hemoglobin A1c 7.1 % (3.8-5.6)
== END | disposition home or self-care (01) ==
LOC: OLS.WCC 23:52
PROVIDERS: PCP Family Medicine Geriatric Medicine; Visit Provider Family Medicine
DX: R19.4 Change in bowel habit (principal); R19.7 Diarrhea, unspecified; E55.9 Vitamin D deficiency, unspecified; E11.9 Type 2 diabetes mellitus without complications; Z79.899 Other long term (current) drug therapy
CPT/HCPCS: 36415; 82306; 83036; 87493; 87506

== ENCOUNTER → 2022-09-30 | Outpatient (REF) | payer MEDICAID, SELFPAY ==
[2022-09-30 09:07] LABS: Hematocrit 37.7 % (37-47); Hemoglobin 11.7 g/dL (12.0-15.0); Mean Corpuscular Hgb 30.6 pg (27.0-32.0); Mean Corpuscular Volume 98.7 fL (81-99); Mean Platelet Vol. 11.2 fl (6.2-12.0); Platelet Count 196 K/mm3 (150-450); RBC Distribution Width CV 12.6 % (11.6-14.6); RBC Distribution Width SD 45.7 fl (35.1-43.9); Red Blood Count 3.82 M/mm3 (4.2-5.4); White Blood Count 5.1 K/mm3 (4.4-11.0)
[2022-09-30 09:32] LABS: Anion Gap 7 (5-15); BUN 26 mg/dL (7-18); BUN/Creat Ratio 20.3 RATIO (10-20); Calcium,Total 8.7 mg/dL (8.5-10.1); Chloride 105 mmol/L (98-107); Creatinine, Serum 1.28 mg/dL (0.55-1.02); EST Glomerular Filtration Rate 44 mL/min (>60); Est Glom Filt Rate - Afr Amer 54 mL/min (>60); Glucose 111 mg/dL (74-106); Potassium 4.4 mmol/L (3.5-5.1); Sodium Level 139 mmol/L (136-145)
== END | disposition home or self-care (01) ==
LOC: OLS.WCC 04:00
PROVIDERS: PCP Family Medicine Geriatric Medicine; Visit Provider Family Medicine
DX: I50.9 Heart failure, unspecified (principal); J20.9 Acute bronchitis, unspecified; R00.0 Tachycardia, unspecified; R06.02 Shortness of breath
CPT/HCPCS: 36415; 80048; 85027

== ENCOUNTER → 2022-12-24 | Outpatient (REF) | payer MEDICAID, SELFPAY ==
[2022-12-24 08:22] LABS: Absolute Lymphocyte Count 2.68 X10^3/uL (0.83-4.51); Absolute Neutrophil Count 2.3 X10^3/uL (2.0-7.7); Basophil# 0.06 X10^3/uL; Eosinophil# 0.36 X10^3/uL; Hematocrit 36.5 % (37-47); Hemoglobin 11.7 g/dL (12.0-15.0); Lymphocyte # 2.68 X10^3/ul (0.83-4.51); Lymphocyte % 44.5 % (19-41); Mean Corp Hgb Conc 32.1 g/dL (32-36); Mean Corpuscular Hgb 31.9 pg (27.0-32.0); Mean Corpuscular Volume 99.5 fL (81-99); Mean Platelet Vol. 10.8 fl (6.2-12.0); Monocyte# 0.59 X10^3/uL; Monocyte% 9.8 % (0-10); NRBC Flagged by Analyzer 0 % (0-5); Neutrophil # 2.31 X10^3/uL (2.7-7.7); Neutrophil % 38.4 % (47-70); Platelet Count 203 K/mm3 (150-450); RBC Distribution Width SD 47.1 fl (35.1-43.9); Red Blood Count 3.67 M/mm3 (4.2-5.4)
[2022-12-24 08:45] LABS: ALB/GLOB Ratio 0.7 RATIO (0.9-2.4); AST(SGOT) 12 U/L (15-37); Alanine Aminotransfer ALT/SGPT 18 U/L (13-56); Albumin, Serum 2.5 g/dL (3.2-5.0); Alkaline Phosphatase 51 U/L (45-117); Anion Gap 5 (5-15); BUN 21 mg/dL (7-18); BUN/Creat Ratio 18.6 RATIO (10-20); Bilirubin, Direct 0.11 mg/dL (0.00-0.30); Chloride 106 mmol/L (98-107); Creatinine, Serum 1.13 mg/dL (0.55-1.02); EST Glomerular Filtration Rate 51 mL/min (>60); Est Glom Filt Rate - Afr Amer 62 mL/min (>60); Globulin 3.5 g/dL (2.2-4.2); Glucose 154 mg/dL (74-106); Potassium 4.1 mmol/L (3.5-5.1); Sodium Level 140 mmol/L (136-145)
[2022-12-24 08:47] LABS: Valproic Acid (Depakene) Level 80 ug/mL (50-100)
== END | disposition home or self-care (01) ==
LOC: OLS.WCC 05:00
PROVIDERS: PCP Family Medicine Geriatric Medicine; Visit Provider Family Medicine
DX: I50.9 Heart failure, unspecified (principal); F03.90 Unspecified dementia, unspecified severity, without behavioral disturbance, psychotic disturbance, mood disturbance, and anxiety; E11.9 Type 2 diabetes mellitus without complications; R53.83 Other fatigue; Z79.899 Other long term (current) drug therapy
CPT/HCPCS: 36415; 80053; 80164; 82248; 85025

== ENCOUNTER → 2023-03-26 | Outpatient (REF) | payer MEDICAID, SELFPAY ==
[2023-03-26 10:09] LABS: Hemoglobin A1c 7.3 % (3.8-5.6); Vitamin D,25 Hydroxy 39.3 ng/mL
== END | disposition home or self-care (01) ==
LOC: OLS.WCC 05:00
PROVIDERS: PCP Family Medicine Geriatric Medicine; Visit Provider Family Medicine
DX: E11.9 Type 2 diabetes mellitus without complications (principal); Z79.899 Other long term (current) drug therapy
CPT/HCPCS: 36415; 82306; 83036

== ENCOUNTER → 2023-06-27 | Outpatient (REF) | payer MEDICAID, SELFPAY ==
[2023-06-27 08:48] LABS: Absolute Lymphocyte Count 3.35 X10^3/uL (0.83-4.51); Absolute Neutrophil Count 4.4 X10^3/uL (2.0-7.7); Basophil# 0.07 X10^3/uL; Basophil% 0.8 % (0-1); Eosinophil# 0.16 X10^3/uL; Eosinophils% 1.8 % (0-5); Hematocrit 46.3 % (37-47); Hemoglobin 13.9 g/dL (12.0-15.0); Lymphocyte # 3.35 X10^3/ul (0.83-4.51); Mean Corpuscular Hgb 30.3 pg (27.0-32.0); Mean Corpuscular Volume 101.1 fL (81-99); Mean Platelet Vol. 11.5 fl (6.2-12.0); Monocyte# 0.86 X10^3/uL; Monocyte% 9.8 % (0-10); NRBC Flagged by Analyzer 0 % (0-5); Neutrophil # 4.35 X10^3/uL (2.7-7.7); Neutrophil % 49.3 % (47-70); Platelet Count 386 K/mm3 (150-450); RBC Distribution Width CV 13.1 % (11.6-14.6); RBC Distribution Width SD 48.6 fl (35.1-43.9); Red Blood Count 4.58 M/mm3 (4.2-5.4); White Blood Count 8.8 K/mm3 (4.4-11.0)
[2023-06-27 08:50] LABS: ALB/GLOB Ratio 0.5 RATIO (0.9-2.4); AST(SGOT) 21 U/L (15-37); Alanine Aminotransfer ALT/SGPT 16 U/L (13-56); Albumin, Serum 2.4 g/dL (3.2-5.0); Alkaline Phosphatase 76 U/L (45-117); Anion Gap 5 (5-15); BUN 25 mg/dL (7-18); BUN/Creat Ratio 21.4 RATIO (10-20); Bilirubin, Direct 0.17 mg/dL (0.00-0.30); Calcium,Total 9.5 mg/dL (8.5-10.1); Chloride 101 mmol/L (98-107); Creatinine, Serum 1.17 mg/dL (0.55-1.02); EST Glomerular Filtration Rate 49 mL/min (>60); Est Glom Filt Rate - Afr Amer 60 mL/min (>60); Globulin 4.9 g/dL (2.2-4.2); Glucose 173 mg/dL (74-106); Potassium 3.1 mmol/L (3.5-5.1); Protein, Total 7.3 g/dL (6.4-8.2); Sodium Level 140 mmol/L (136-145); Valproic Acid (Depakene) Level 47 ug/mL (50-100)
[2023-06-27 10:29] LABS: Hemoglobin A1c 7.3 % (3.8-5.6)
== END | disposition home or self-care (01) ==
LOC: OLS.WCC 05:00
PROVIDERS: Visit Provider Family Medicine
DX: I50.9 Heart failure, unspecified (principal); E11.9 Type 2 diabetes mellitus without complications; Z79.899 Other long term (current) drug therapy
CPT/HCPCS: 36415; 80053; 80164; 82248; 83036; 85025